=== PATIENT | male | born 1945 | race Caucasian/White ===

== ENCOUNTER 2017-05-05 03:09 | Inpatient (IN) | payer MEDICARE, OTHER ==
[2017-05-05] MEDS ORDERED: MORPHINE SULFATE 4 MG INJ IV ONE ×2 (03:23→09:21)
[2017-05-05] MEDS ORDERED: TYLENOL 325 MG PO ONE (03:23)
[2017-05-05] MEDS ORDERED: Sodium Chloride 0.9% 1000 ML 1,000 ML IV STA ×2 (03:23→05:03)
[2017-05-05] MEDS ORDERED: Zofran 4 MG/2 ML VIAL IV ONE (03:23)
[2017-05-05] MEDS ORDERED: TYLENOL 325 MG ONE (03:30)
[2017-05-05] MEDS ORDERED: Sodium Chloride 0.9% 1000 ML 1,000 ML ONE ×2 (03:30→05:08)
[2017-05-05] MEDS ORDERED: MORPHINE SULFATE 4 MG INJ ONE (03:30)
[2017-05-05] MEDS ORDERED: Zofran 4 MG/2 ML VIAL ONE (03:30)
--- NOTE | 2017-05-05 03:30 | ERPHSYRPT ---
- History of Present Illness Time Seen by Provider: 05/05/17 03:20 Source: patient Exam Limitations: no limitations Physician History: 71 y/o male with history of pancreatic s/p Whipple in January currently on gemcitabine and another IV chemotherapy weekly brought in by ambulance for fever and abdominal pain that started this morning. Pt states that he had severe diffuse abdominal pain that woke him up and had his temperature checked which was 100.9. In the ER, patient has a fever of 103. Pt states that the pain was sharp, constant, 10/10, with radiation across the abdomen and to the back. Pt currently has mild pain. Pt also admits to nausea, but no vomiting, diarrhea , urinary symptoms, cough, congestion, shortness of breath or chest pain. Timing/Duration: today Fever Severity: severe Fever Therapy CASE MANAGEMENT SPECIALIST: none Associated Symptoms: abdominal pain Allergies/Adverse Reactions: No Known Drug Allergies Allergy (Unverified 05/05/17 03:24) Home Medications: Capecitabine 500 mg PO BID 05/05/17 [History] Clonazepam 0.5 mg [Klonopin 0.5 MG] 0.5 mg PO BIDPRN PRN 05/05/17 [History ] Dexamethasone Sodium Phosp/Pf [Dexamethasone 10 mg/ml Vial] 12 mg IV DAILY PRN PRN 05/05/17 [History] Docusate Sodium 100 mg PO DAILY PRN PRN 05/05/17 [History] Gemcitabine HCl 1,800 mg IV Q12H PRN PRN 05/05/17 [History] Lansoprazole 30 mg PO DAILY 05/05/17 [History] Loperamide HCl 2 mg [Imodium 2 mg] 2 mg PO Q12H PRN PRN 05/05/17 [History] Ondansetron [Zofran Odt] 4 mg PO Q6HPRN PRN 05/05/17 [History] Oxycodone HCl [Oxycodone HCl ER] 10 mg PO Q4HPRN PRN 05/05/17 [History] Oxycodone HCl [Oxycodone HCl ER] 20 mg PO Q4HPRN PRN 05/05/17 [History] Prochlorperazine Maleate 10 mg PO Q6HPRN PRN 05/05/17 [History] - Review of Systems Constitutional: Fever, Chills, Weakness Eyes: No Symptoms Ears, Nose, & Throat: No Symptoms Respiratory: No Cough, No Dyspnea, No Dyspnea on Exertion (MARINO), No Wheezing Cardiac: No Chest Pain, No Edema, No Palpitations, No Syncope Abdominal/Gastrointestinal: Abdominal Pain, Nausea, Constipation, No Vomiting, No Diarrhea Genitourinary Symptoms: No Dysuria Musculoskeletal: No Back Pain, No Neck Pain Skin: No Rash Neurological: No Dizziness, No Focal Weakness, No Sensory Changes Psychological: No Symptoms Endocrine: No Symptoms Hematologic/Lymphatic: Easy Bruising All Other Systems: Reviewed and Negative - Nursing Vital Signs Nursing Vital Signs: Initial Vital Signs Temperature 103.1 F 05/05/17 03:27 Pulse Rate 138 H 05/05/17 03:27 Respiratory Rate 24 05/05/17 03:27 Blood Pressure 147/66 05/05/17 03:27 O2 Sat by Pulse Oximetry 97 05/05/17 03:27 Pain Scale Pain Intensity 4 - Physical Exam General Appearance: moderate distress, alert Eye Exam: PERRL/EOMI ENT Exam: normal ENT inspection, No pharyngeal erythema, No tonsillar exudate Neck Exam: normal inspection, non-tender, supple, full range of motion, No meningismus Respiratory Exam: normal breath sounds, chest non-tender, lungs clear, no respiratory distress Cardiovascular/Chest Exam: normal heart sounds, regular rate/rhythm, No murmur, No edema Gastrointestinal/Abdominal Exam: soft, no distention, normal bowel sounds, tenderness, No distended Extremity Exam: non-tender, normal range of motion, normal inspection, normal capillary refill Neurologic Exam: alert, oriented x 3, cooperative, wildlife control agent II-XII nml as tested, normal mood/affect, sensation nml, No motor deficits Skin Exam: normal color, warm, dry, No rash - Course Nursing assessment & vital signs reviewed: Yes EKG Interpreted by Me: RATE (HR 143), Sinus Tach Ordered Tests: Active Orders 24 hr Category Date Time Status EKG-ER Only STAT Care 05/05/17 03:23 Active IV Insertion STAT Care 05/05/17 03:23 Active NPO (ED) STAT Care 05/05/17 03:23 Active ABDOMEN AND PELVIS W CONTRAST [CT] Stat Exams 05/05/17 03:23 Taken CHEST WITH CONTRAST [CT] Stat Exams 05/05/17 03:30 Taken AMYLASE Stat Lab 03/01/18 03:59 Completed BLOOD CULTURE Stat Lab 05/05/17 03:59 Received CBC W DIFF Stat Lab 05/05/17 03:59 Completed CMP Stat Lab 05/05/17 03:59 Completed LIPASE Stat Lab 05/05/17 03:59 Completed Lactic Acid Stat Lab 05/05/17 04:30 Completed Lactic Acid Stat Lab 05/05/17 06:47 Ordered Manual Differential NC Stat Lab 05/05/17 03:59 Completed PROTIME WITH INR Stat Lab 05/05/17 03:59 Completed PTT Stat Lab 05/05/17 04:00 Received TROPONIN Q3H Lab 05/05/17 03:59 Completed TROPONIN Q3H Lab 05/05/17 06:38 Received TROPONIN Q3H Lab 05/05/17 09:30 Ordered TROPONIN Q3H Lab 05/05/17 12:30 Ordered TROPONIN Q3H Lab 05/05/17 15:30 Ordered UA W/ MICROSCOPIC Stat Lab 05/05/17 04:27 Completed Medication Summary Generic Name Dose Route Start Last Admin Trade Name Freq PRN Reason Stop Dose Admin Piperacillin Sod/Tazobactam Sod 3.375 gm in 100 mls @ 200 mls/hr 05/05/17 06: 40 05/05/17 06:46 Zosyn 3.375gm/100 Ml D5w IV 05/05/17 07:09 200 mls/hr STAT STA Administration Discontinued Medications Generic Name Dose Route Start Last Admin Trade Name Freq PRN Reason Stop Dose Admin Acetaminophen 975 mg 05/05/17 03:23 05/05/17 03:32 Tylenol 325 Mg PO 05/05/17 03:24 975 mg STAT ONE Administration Acetaminophen Confirm 05/05/17 03:30 Tylenol 325 Mg Administered 05/05/17 03:31 Dose 975 mg .ROUTE .STK-MED ONE Sodium Chloride 1,000 mls @ 999 mls/hr 05/05/17 03:23 05/05/17 03:38 Sodium Chloride 0.9% 1000 Ml IV 05/05/17 04:23 999 mls/hr .Q1H1M STA Administration Sodium Chloride Confirm 05/05/17 03:30 Sodium Chloride 0.9% 1000 Ml Administered 05/05/17 03:31 Dose 1,000 mls @ ud .ROUTE .STK-MED ONE Sodium Chloride 1,000 mls @ 999 mls/hr 05/05/17 05:03 05/05/17 05:08 Sodium Chloride 0.9% 1000 Ml IV 05/05/17 06:03 999 mls/hr .Q1H1M STA Administration Sodium Chloride Confirm 05/05/17 05:08 Sodium Chloride 0.9% 1000 Ml Administered 05/05/17 05:09 Dose 1,000 mls @ ud .ROUTE .STK-MED ONE Piperacillin Sod/Tazobactam Sod Confirm 05/05/17 06:45 Zosyn 3.375gm/100 Ml D5w Administered 05/05/17 06:46 Dose 3.375 gm in 100 mls @ ud IV .STK-MED ONE Morphine Sulfate 4 mg 05/05/17 03:23 05/05/17 03:34 Morphine Sulfate 4 Mg Inj IV 05/05/17 03:24 4 mg STAT ONE Administration Morphine Sulfate Confirm 05/05/17 03:30 Morphine Sulfate 4 Mg Inj Administered 05/05/17 03:31 Dose 4 mg .ROUTE .STK-MED ONE Ondansetron HCl 4 mg 05/05/17 03:23 05/05/17 03:38 Zofran 4 Mg/2 Ml Vial IV 05/05/17 03:24 4 mg STAT ONE Administration Ondansetron HCl Confirm 05/05/17 03:30 Zofran 4 Mg/2 Ml Vial Administered 05/05/17 03:31 Dose 4 mg .ROUTE .STK-MED ONE Lab/Rad Data: Laboratory Result Diagrams 05/05/17 03:59 05/05/17 03:59 Laboratory Results 05/05/17 05/05/17 05/05/17 Range/Units 04:30 04:27 03:59 WBC (4.0-10.5) K/mm3 RBC (4.1-5.6) M/mm3 Hgb (12.5-18.0) gm/dl Hct (42-50) % MCV (78-100) fl MCH (26-32) pg MCHC (32-36) g/dl RDW (11.5-14.0) % Plt Count (150-450) K/mm3 MPV (6-9.5) fl Segmented Neutrophils (36.-66.) % Band Neutrophils (0.0-2.0) % Lymphocytes (Manual) (24-44) % Nucleated RBCs % Differential Comment Platelet Estimate (NORMAL) INR (0.8-3.0) Sodium (136-145) mEq/L Potassium (3.5-5.1) mEq/L Chloride (98-107) mEq/L Carbon Dioxide (21-32) mEq/L Anion Gap (5-15) MEQ/L BUN (9-20) mg/dL Creatinine (0.55-1.30) mg/dl Estimated GFR ML/MIN Glucose (70-110) MG/DL Lactic Acid 4.0 H (0.4-2.0) Calcium (8.5-10.1) mg/dL Total Bilirubin (0.2-1.0) mg/dL AST (15-37) U/L ALT (12-78) U/L Alkaline Phosphatase (46-116) U/L Troponin I (0.000-0.056) ng/ml Serum Total Protein (6.4-8.2) gm/dL Albumin (3.4-5.0) g/dL Amylase (25-115) U/L Lipase (73-393) U/L Ur Collection Type VOID Urine Color YELLOW (YELLOW) Urine Appearance CLEAR (CLEAR) Urine pH 7.0 (5-6) Ur Specific [place] 1.010 (1.005-1.025) Urine Protein NEGATIVE (Negative) Urine Ketones NEGATIVE (NEGATIVE) Urine Blood TRACE NON-HEM (0-5) Errol/ul Urine Nitrite NEGATIVE (NEGATIVE) Urine Bilirubin NEGATIVE (NEGATIVE) Urine Urobilinogen NORMAL (0-1) mg/dL Ur Leukocyte Esterase NEGATIVE (NEGATIVE) Urine Microscopic RBC 2-5 (0-2) /HPF Urine Microscopic WBC 2-5 (0-5) /HPF Ur Epithelial Cells FEW (FEW) /HPF Urine Bacteria FEW (NEGATIVE) /HPF Urine Culture Reflexed NO (NO) Urine Glucose NEGATIVE (NEGATIVE) mg/dL Influenza Type A Ag NEGATIVE (NEGATIVE) Influenza Type B Ag NEGATIVE (NEGATIVE) RSV (PCR) NEGATIVE (Negative) Specimen Received 05/05/17 0400 05/05/17 05/05/17 05/05/17 Range/Units 03:59 03:59 03:59 WBC (4.0-10.5) K/mm3 RBC (4.1-5.6) M/mm3 Hgb (12.5-18.0) gm/dl Hct (42-50) % MCV (78-100) fl MCH (26-32) pg MCHC (32-36) g/dl RDW (11.5-14.0) % Plt Count (150-450) K/mm3 MPV (6-9.5) fl Segmented Neutrophils (36.-66.) % Band Neutrophils (0.0-2.0) % Lymphocytes (Manual) (24-44) % Nucleated RBCs % Differential Comment Platelet Estimate (NORMAL) INR 1.11 (0.8-3.0) Sodium 139 (136-145) mEq/L Potassium 3.7 (3.5-5.1) mEq/L Chloride 100 (98-107) mEq/L Carbon Dioxide 24.3 (21-32) mEq/L Anion Gap 18.2 H (5-15) MEQ/L BUN 16 (9-20) mg/dL Creatinine 1.23 (0.55-1.30) mg/dl Estimated GFR > 60 ML/MIN Glucose 176 H (70-110) MG/DL Lactic Acid (0.4-2.0) Calcium 8.5 (8.5-10.1) mg/dL Total Bilirubin 1.10 H (0.2-1.0) mg/dL AST 436 H (15-37) U/L ALT 248 H (12-78) U/L Alkaline Phosphatase 276 H (46-116) U/L Troponin I < 0.017 (0.000-0.056) ng/ml Serum Total Protein 6.6 (6.4-8.2) gm/dL Albumin 3.1 L (3.4-5.0) g/dL Amylase 47 (25-115) U/L Lipase 78 (73-393) U/L Ur Collection Type Urine Color (YELLOW) Urine Appearance (CLEAR) Urine pH (5-6) Ur Specific [place] (1.005-1.025) Urine Protein (Negative) Urine Ketones (NEGATIVE) Urine Blood (0-5) Errol/ul Urine Nitrite (NEGATIVE) Urine Bilirubin (NEGATIVE) Urine Urobilinogen (0-1) mg/dL Ur Leukocyte Esterase (NEGATIVE) Urine Microscopic RBC (0-2) /HPF Urine Microscopic WBC (0-5) /HPF Ur Epithelial Cells (FEW) /HPF Urine Bacteria (NEGATIVE) /HPF Urine Culture Reflexed (NO) Urine Glucose (NEGATIVE) mg/dL Influenza Type A Ag (NEGATIVE) Influenza Type B Ag (NEGATIVE) RSV (PCR) (Negative) Specimen Received 05/05/17 Range/Units 03:59 WBC 3.3 L (4.0-10.5) K/mm3 RBC 4.04 L (4.1-5.6) M/mm3 Hgb 11.1 L (12.5-18.0) gm/dl Hct 34.8 L (42-50) % MCV 86.1 (78-100) fl MCH 27.4 (26-32) pg MCHC 31.9 L (32-36) g/dl RDW 15.4 H (11.5-14.0) % Plt Count 112 L (150-450) K/mm3 MPV 8.7 (6-9.5) fl Segmented Neutrophils 79 H (36.-66.) % Band Neutrophils 11 H (0.0-2.0) % Lymphocytes (Manual) 10 L (24-44) % Nucleated RBCs 1 % Differential Comment NORMAL Platelet Estimate NORMAL (NORMAL) INR (0.8-3.0) Sodium (136-145) mEq/L Potassium (3.5-5.1) mEq/L Chloride (98-107) mEq/L Carbon Dioxide (21-32) mEq/L Anion Gap (5-15) MEQ/L BUN (9-20) mg/dL Creatinine (0.55-1.30) mg/dl Estimated GFR ML/MIN Glucose (70-110) MG/DL Lactic Acid (0.4-2.0) Calcium (8.5-10.1) mg/dL Total Bilirubin (0.2-1.0) mg/dL AST (15-37) U/L ALT (12-78) U/L Alkaline Phosphatase (46-116) U/L Troponin I (0.000-0.056) ng/ml Serum Total Protein (6.4-8.2) gm/dL Albumin (3.4-5.0) g/dL Amylase (25-115) U/L Lipase (73-393) U/L Ur Collection Type Urine Color (YELLOW) Urine Appearance (CLEAR) Urine pH (5-6) Ur Specific [place] (1.005-1.025) Urine Protein (Negative) Urine Ketones (NEGATIVE) Urine Blood (0-5) Errol/ul Urine Nitrite (NEGATIVE) Urine Bilirubin (NEGATIVE) Urine Urobilinogen (0-1) mg/dL Ur Leukocyte Esterase (NEGATIVE) Urine Microscopic RBC (0-2) /HPF Urine Microscopic WBC (0-5) /HPF Ur Epithelial Cells (FEW) /HPF Urine Bacteria (NEGATIVE) /HPF Urine Culture Reflexed (NO) Urine Glucose (NEGATIVE) mg/dL Influenza Type A Ag (NEGATIVE) Influenza Type B Ag (NEGATIVE) RSV (PCR) (Negative) Specimen Received - Progress Progress: improved Progress Note: 05/05/17 06:[address] chest does not show a pulmonary embolus but the CT abd/pelvis shows a possible enteritis vs cholangitis. There is also pneumobilia with slight thickening of the central biliary ducts. Pt will be started on zosyn. The patient feels better after receiving morphine, zofran and NS fluids. Pt has a lactic acid of 4. Pt has elevated LFTs but no trend to compare since the [facility]. [facility] but [facility] not [facility] due to his HR being too high. Pt will require inpatient admission and once the patient is more stable, [facility] can be [facility]. Pt has been [facility] on the waitlist. I spoke to Dr Vizcaino who has accepted the patient but the patient will go under the service of Dr Maria. 05/05/17 06:53 - Departure Time of Disposition: 06:54 Departure Disposition: In-patient Admission Clinical Impression: Enteritis Fever Qualifiers: Fever type: unspecified Qualified Code(s): R50.9 - Fever, unspecified Condition: Fair Critical Care Time: Yes Critical Care Time(excluding separately billable procedures): 75-104 minutes Referrals: [facility] [Primary Care Provider] -
[2017-05-05 04:19] LABS: Hematocrit 34.8 % (42-50); Hemoglobin 11.1 gm/dl (12.5-18.0); INR 1.11 (0.8-3.0); Mean Cell Volume 86.1 fl (78-100); Mean Corpuscular Hgb Concent. 31.9 g/dl (32-36); Mean Platelet Volume 8.7 fl (6-9.5); Platelet Count 112 K/mm3 (150-450); Red Blood Count 4.04 M/mm3 (4.1-5.6); Red Cell Distribution Width 15.4 % (11.5-14.0); White Blood Count 3.3 K/mm3 (4.0-10.5)
[2017-05-05 04:24] LABS: Mean Corpuscular Hemoglobin 27.4 pg (26-32)
[2017-05-05 04:26] LABS: ALBUMIN 3.1 g/dL (3.4-5.0); ALKALINE PHOSPHATASE 276 U/L (46-116); AMYLASE 47 U/L (25-115); ANION GAP 18.2 MEQ/L (5-15); BLOOD UREA NITROGEN 16 mg/dL (9-20); CHLORIDE 100 mEq/L (98-107); Calcium 8.5 mg/dL (8.5-10.1); Carbon Dioxide 24.3 mEq/L (21-32); Creatinine 1 1.23 mg/dl (0.55-1.30); Glucose 176 MG/DL (70-110); LIPASE 78 U/L (73-393); Potassium 3.7 mEq/L (3.5-5.1); SGOT/AST 436 U/L (15-37); SGPT/ALT 248 U/L (12-78); SODIUM 139 mEq/L (136-145); Total Protein 6.6 gm/dL (6.4-8.2)
[2017-05-05 04:48] LABS: Appearance CLEAR (CLEAR); Bilirubin NEGATIVE (NEGATIVE); Blood TRACE NON-HEM Ery/ul (0-5); Glucose NEGATIVE (NEGATIVE); Ketones NEGATIVE (NEGATIVE); Leukocyte Esterase NEGATIVE (NEGATIVE); Nitrite NEGATIVE (NEGATIVE); Protein,Urine Dip NEGATIVE (Negative); Urobilinogen NORMAL mg/dL (0-1)
[2017-05-05 04:49] LABS: Bacteria FEW /HPF (NEGATIVE); Epithelial Cells FEW /HPF (FEW)
[2017-05-05 04:51] LABS: INFLUENZA A NEGATIVE (NEGATIVE); INFLUENZA B NEGATIVE (NEGATIVE); RESPIRATORY SYNCTIAL VIRUS NEGATIVE (Negative)
[2017-05-05 04:54] LABS: BAND 11 % (0.0-2.0); Lymphocytes 10 % (24-44); Neutrophils 79 % (36.-66.); Nucleated Red Blood Cell 1 %; Platelet Estimate NORMAL (NORMAL); Total Cells Counted 100
[2017-05-05] MEDS ORDERED: Zosyn 3.375GM/100 Ml D5W 3.375 GM/100 ML IVPB IV STA (06:40)
[2017-05-05] MEDS ORDERED: Zosyn 3.375GM/100 Ml D5W 3.375 GM/100 ML IVPB IV ONE (06:45)
[2017-05-05] MEDS ORDERED: TYLENOL 325 MG PO PRN (06:55)
[2017-05-05 07:26] LABS: Lactic Acid 2.9 (0.4-2.0)
[2017-05-05] MEDS: Sodium Chloride 0.9% 1000 ML 1,000 ML IV SCH ×3 (08:35→19:49)
[2017-05-05] MEDS: MORPHINE SULFATE 4 MG INJ IV PRN ×3 (08:43→21:28)
--- NOTE | 2017-05-05 09:18 | PCM.HP ---
History of Present Illness - Chief Complaint Chief Complaint: abd pain History of Present Illness: is a 71 year old male with no local physician, he normally receives care from the [facility] in [place]. He has a history of pancreatic cancer and a Whipple procedure, started on chemotherapy 3 weeks ago. He woke up last night in the middle of the night with sudden epigastric pain and fever. He denies nausea, vomiting or diarrhea. Has no cardiac history, states he has a murmur but has been determined to be benign. In the ER he was found to have an elevated lactic acid, CT concerning for cholangitis with elevated LFT's and was tachycardic. Apparently the [facility] refused to take him due to no beds available in spite of his receiving all of his care there and was due for a chemo infusion today in their facility. he did have some radiation of the epigastric pain in to his chest, currently has pain in the epigastrium only. - Review of Systems Constitutional: Fever, Chills Respiratory: No Cough, No Short Of Breath Cardiac: No Chest Pain, No Edema, No Syncope Abdominal/Gastrointestinal: Abdominal Pain, No Nausea, No Vomiting, No Diarrhea , No Constipation, No Hematochezia, No Melena Genitourinary Symptoms: No Dysuria Skin: No Rash All Other Systems: Reviewed and Negative Medications & Allergies Home Medications: Home Medication List Clonazepam 0.5 mg [Klonopin 0.5 MG] 0.5 mg PO BIDPRN PRN 05/05/17 [ History Confirmed 05/05/17] Docusate Sodium 100 mg PO BID 05/05/17 [History Confirmed 05/05/17] Lansoprazole 30 mg PO LUNCH 05/05/17 [History Confirmed 05/05/17] Loperamide HCl 2 mg [Imodium 2 mg] 2 mg PO Q12H PRN PRN 05/05/17 [History Confirmed 05/05/17] Ondansetron [Zofran Odt] 4 mg PO Q6HPRN PRN 05/05/17 [History Confirmed 05/05/17 ] Oxycodone HCl 10 mg PO Q4H PRN 05/05/17 [History Confirmed 05/05/17] Prochlorperazine Maleate 10 mg PO Q6HPRN PRN 05/05/17 [History Confirmed ] Allergies/Adverse Reactions: Allergies Allergy/AdvReac Type Severity Reaction Status Date / Time No Known Drug Allergies Allergy Unverified 05/05/17 03:24 - Past Medical History Past Medical History: No Neurological History: No Pertinent History ENT History: No Pertinent History Cardiac History: Other Respiratory History: Asthma Endocrine Medical History: No Pertinent History Musculoskelatal History: Other GI Medical History: Colorectal Cancer, Diverticulosis, Other History: No Pertinent History Pyscho-Social History: Other Male Reproductive Disorders: No Pertinent History Comment: neck pain, vertigo, pancreatic cencer, non hodgkin lymphoma, sleep disorder, lumbago - Past Surgical History Past Surgical History: Yes Neuro Surgical History: No Pertinent History Cardiac History: No Pertinent History Respiratory Surgery: No Pertinent History GI Surgical History: Other Other Surgical History: whipple, pancreatic cancer - Social History Smoking Status: Former smoker Alcohol: None Drug Use: none - Physical Exam Vital Signs: Vital Signs - 24 hr Temp Pulse Resp BP Pulse Ox 05/05/17 08:11 118 H 18 97/56 97 05/05/17 07:33 123 H 16 118/59 93 L 05/05/17 06:51 128 H 16 120/61 95 05/05/17 06:48 128 H 20 128/81 96 05/05/17 05:50 130 H 05/05/17 05:40 130 H 18 128/61 96 05/05/17 04:50 126 H 18 124/47 97 05/05/17 04:00 132 H 18 133/78 98 05/05/17 03:27 103.1 F 138 H 24 147/66 97 General Appearance: no apparent distress, thin Neurologic Exam: alert, oriented x 3, cooperative Respiratory Exam: normal breath sounds, lungs clear, No respiratory distress Cardiovascular Exam: regular rate/rhythm, normal heart sounds, normal peripheral pulses Gastrointestinal/Abdomen Exam: soft, normal bowel sounds, No tenderness, No distention, No mass, No guarding Extremity Exam: normal inspection, normal range of motion, pelvis stable Skin Exam: normal color, warm, dry, No rash Assessment/Plan (1) Acute cholangitis Current Visit: Yes Status: Acute Assessment & Plan: will keep NPO, treat with IV zosyn and fluids. awaiting transfer to [facility] Code(s): K83.0 - CHOLANGITIS (2) Elevated troponin Current Visit: Yes Status: Acute Assessment & Plan: will consult Dr Ugarte since [facility], likely demand related due to current illness but will appreciate cardiology input. Code(s): R74.8 - ABNORMAL LEVELS OF OTHER SERUM ENZYMES (3) Pancreatic cancer Current Visit: Yes Status: Acute
[2017-05-05 10:06] LABS: Lactic Acid 3.4 (0.4-2.0)
[2017-05-05] MEDS ORDERED: NON-FORMULARY ITEM (Oxycodone Hcl [Oxycodone Hcl] 10 MG) PO PRN (10:20)
[2017-05-05] MEDS ORDERED: Klonopin 0.5 MG PO PRN (10:20)
[2017-05-05] MEDS: Colace 100 MG PO SCH ×3 (10:47→21:27)
[2017-05-05] MEDS ORDERED: Sodium Chloride 0.9% 500 ML 500 ML IV ONE (11:10)
[2017-05-05] MEDS: Zosyn 3.375GM/100 Ml D5W 3.375 GM/100 ML IVPB IV SCH ×2 (11:35→17:05)
[2017-05-05] MEDS: Protonix 40MG Tablet PO SCH (11:35)
[2017-05-05 12:59] LABS: Lactic Acid 2.3 (0.4-2.0)
--- NOTE | 2017-05-05 13:42 | XRAY ---
Exam: CT of the chest with IV contrast from 05/05/2017. CTDI: 13.62 Comparison: None. 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 History of colon cancer in 2000 with partial colon resection. Also has history of Whipple procedure in January, for pancreatic cancer. Technique: Post-IV contrast axial images were obtained through the chest per PE protocol during automated injection of 80 cc of Isovue-370 contrast material. Reconstructed coronal and sagittal images were created and reviewed. Findings: The pulmonary arteries enhance well revealing no filling defects to suggest clot/emboli. The thoracic aorta reveals no evidence of aneurysm or aortic dissection. A few small granulomatous calcifications overlie the distal right paratracheal projection and the right hilum. No abnormal mediastinal or perihilar lymphadenopathy is seen. Mild chronic scarring/atelectasis is seen at the anterior margin of the left upper lung field with evidence of some bronchiectasis and mild left chest volume loss. A prominent calcified granuloma is seen within the right upper lung field. I also note a minimal posterior pleural effusion or possibly small empyema at the posterior left lung base with pleural thickening. No pneumothorax is seen. Some pneumobilia is seen within the visualized liver, perhaps to the patient's prior Whipple's procedure. Minimal fluid is seen within the gallbladder fossa and the adjacent small bowel loops within the medial aspect of the right upper quadrant. The reason for this is unknown. Numerous calcified granulomas are seen within a normal-sized spleen. There appears to be some thickening and enhancement of the wall of the gastric antrum. Consider gastritis or some other infiltrating process. The adrenal glands appear unremarkable. Partial proximal pancreatectomy is seen. Impression: 1. I see no findings of acute pulmonary embolism. Nor do I detect a thoracic aortic aneurysm or dissection. 2. There appears to be some mild focal chronic scarring/atelectasis within the anterior upper to mid left lung field with bronchiectasis and some volume loss. This appears old. 3. At the posterior left lung base there appears to be a minimal left pleural effusion with pleural thickening versus a small empyema. See axial image #1. 4. Pneumobilia, likely related to the patient's prior Whipple procedure. Partial proximal pancreatectomy is also seen. 5. A small amount of fluid is seen within the gallbladder fossa and adjacent to small bowel loops in this region. The reason for this is not clear. Consider enteritis. 6. There is some thickening and mucosal enhancement within the gastric antrum. Consider gastritis or some other infiltrating process.
--- NOTE | 2017-05-05 14:08 | XRAY ---
Exam: CT of the abdomen and pelvis with IV contrast from 05/05/2017. CTDI: 14.42 Comparison: None. Indication: Abdominal pain with high fever. Patient taking chemotherapy now for pancreatic cancer, history of Whipple procedure in January, with cholecystectomy, history of partial colon resection for colon cancer in 2000. Technique: Post-IV contrast axial images were obtained through the abdomen and pelvis during and following automated IV injection of 80 cc of Isovue-370 contrast material. Reconstructed coronal and sagittal images were created and reviewed. Findings: I again note pneumobilia within the liver, probably due to the patient's recent Whipple's procedure. A few scattered calcified granulomas are seen within the liver. I also note some periportal edema within the liver with slight thickening of the central intrahepatic biliary ducts (image 20 of series #5). I also see a small amount of fluid within the gallbladder fossa and the adjacent small bowel within the medial aspect of the right upper quadrant. Consider the possibility of enteritis or cholangitis. No definite stones are seen. The spleen is of normal size and reveals numerous calcified granulomas. I see changes consistent with patient's Whipple procedure involving the pancreas. No pancreatic duct distention is seen. The adrenal glands appear unremarkable. The kidneys are unremarkable size and reveal no mass, calculi, or hydronephrosis. The ureters reveal no ureterolith. Atherosclerotic vascular calcification is seen within the abdominal aorta. No abdominal aortic aneurysm or abnormal retroperitoneal lymphadenopathy is seen. No free intraperitoneal air is seen. I again note some thickening of the antrum of the stomach. This could be due to gastritis. An infiltrating submucosal process is considered less likely. Multiple bowel anastomoses are noted to the patient's Whipple procedure. I see no bowel obstruction. There is some subtle intraperitoneal stranding within the anterior left midabdomen, perhaps due to postsurgical changes. This is best seen on the axial and coronal images. Scattered stool is seen throughout the colon. The appendix appears unremarkable within the right lower quadrant. The urinary bladder is moderately distended but reveals no mass or calcifications. No bladder wall thickening is seen. No enlarged pelvic lymph nodes are seen. No free fluid is seen within the pelvis. The seminal vesicles and prostate gland appear grossly unremarkable. No abnormal inguinal lymphadenopathy is seen. The skeleton reveals no acute fracture or aggressive bone lesion. I note mild grade 1 anterolisthesis of L5 over S1 with bilateral L5 spondylolysis. There appears to be a small Schmorl's node within the central aspect of the superior vertebral endplate of T11. Impression: 1. Pneumobilia with slight thickening of the central intrahepatic bile ducts. Periportal edema and a small amount of fluid within the gallbladder fossa and adjacent small bowel are also seen. Consider the possibility of enteritis or cholangitis. 2. I also note evidence of prior Whipple procedure with postsurgical changes suspected within the anterior left hemiabdomen. 3. Thickening and mucosal enhancement enhancement of the gastric antral wall is seen. This is likely due to gastritis rather than infiltrating process.
[2017-05-06] MEDS: Zosyn 3.375GM/100 Ml D5W 3.375 GM/100 ML IVPB IV SCH ×4 (00:07→18:51)
[2017-05-06] MEDS: Sodium Chloride 0.9% 1000 ML 1,000 ML IV SCH ×3 (02:43→17:13)
[2017-05-06 06:18] LABS: Hematocrit 32.2 % (42-50); Mean Cell Volume 86.8 fl (78-100); Mean Corpuscular Hgb Concent. 31.1 g/dl (32-36); Platelet Count 98 K/mm3 (150-450); Red Blood Count 3.71 M/mm3 (4.1-5.6); White Blood Count 6.3 K/mm3 (4.0-10.5)
[2017-05-06 06:23] LABS: Mean Corpuscular Hemoglobin 26.9 pg (26-32)
[2017-05-06 06:33] LABS: ALBUMIN 2.2 g/dL (3.4-5.0); ALKALINE PHOSPHATASE 203 U/L (46-116); ANION GAP 13.4 MEQ/L (5-15); BLOOD UREA NITROGEN 9 mg/dL (9-20); CHLORIDE 106 mEq/L (98-107); Carbon Dioxide 23.4 mEq/L (21-32); Creatinine 1 0.83 mg/dl (0.55-1.30); Glucose 99 MG/DL (70-110); Potassium 3.9 mEq/L (3.5-5.1); SGOT/AST 203 U/L (15-37); SGPT/ALT 323 U/L (12-78); SODIUM 139 mEq/L (136-145); Total Protein 5.7 gm/dL (6.4-8.2)
[2017-05-06 07:14] LABS: BAND 18 % (0.0-2.0); Lymphocytes 9 % (24-44); Monocyte 7 % (0.0-12.0); Neutrophils 66 % (36.-66.); Total Cells Counted 100
[2017-05-06 07:15] LABS: ANISOCYTOSIS 2+; Macrocytosis 1+; Platelet Estimate DECREASED (NORMAL); Polychromasia 1+
--- NOTE | 2017-05-06 08:35 | PCM.NOTE ---
Date and Time: 05/06/17 08 Subjective Assessment: pain is well controlled, overall thinks he is feeling a little better. no new complaints. Objective Exam General Appearance: no apparent distress, alert, thin Respiratory Exam: normal breath sounds, lungs clear, No respiratory distress Cardiovascular Exam: regular rate/rhythm, normal heart sounds Gastrointestinal/Abdomen Exam: tenderness, No mass, No guarding, No rebound Extremity Exam: normal inspection, normal range of motion OBJECTIVE DATA Vital Signs: Vital Signs - 24 hr Temp Pulse Resp BP Pulse Ox 05/06/17 08:00 98.9 F 88 20 137/57 96 05/06/17 07:41 88 05/06/17 04:48 97.6 F 87 21 113/57 96 05/06/17 04:00 87 05/06/17 02:00 99.2 F 81 23 100/54 95 05/06/17 00:01 84 05/05/17 22:51 90 14 120/57 96 05/05/17 20:23 86 21 110/60 95 05/05/17 19:29 99.3 F 87 21 96/53 97 05/05/17 16:00 99 F 97 H 19 110/58 96 05/05/17 11:42 99 F 104 H 17 106/61 96 05/05/17 10:07 99.5 F 108 H 18 107/59 Pain Assessment - Last Documented Pain Intensity 5 Pain Scale Used 0-10 Pain Scale Intake and Output: Intake & Output 05/03/17 05/04/17 05/05/17 05/06/17 11:59 11:59 11:59 11:59 Intake Total 3361 Output Total 200 2435 Balance -200 926 Weight 64.1 kg 64.1 kg Lab Results: Lab Results-Last 24 Hours 05/05/17 05/05/17 05/05/17 Range/Units 09:26 09:48 12:43 WBC (4.0-10.5) K/mm3 RBC (4.1-5.6) M/mm3 Hgb (12.5-18.0) gm/dl Hct (42-50) % MCV (78-100) fl MCH (26-32) pg MCHC (32-36) g/dl RDW (11.5-14.0) % Plt Count (150-450) K/mm3 MPV (6-9.5) fl Segmented Neutrophils (36.-66.) % Band Neutrophils (0.0-2.0) % Lymphocytes (Manual) (24-44) % Monocytes (Manual) (0.0-12.0) % Differential Comment Platelet Estimate (NORMAL) Polychromasia Anisocytosis Macrocytosis Sodium (136-145) mEq/L Potassium (3.5-5.1) mEq/L Chloride (98-107) mEq/L Carbon Dioxide (21-32) mEq/L Anion Gap (5-15) MEQ/L BUN (9-20) mg/dL Creatinine (0.55-1.30) mg/dl Estimated GFR ML/MIN Glucose (70-110) MG/DL Lactic Acid 3.4 H (0.4-2.0) Calcium (8.5-10.1) mg/dL Total Bilirubin (0.2-1.0) mg/dL AST (15-37) U/L ALT (12-78) U/L Alkaline Phosphatase (46-116) U/L Troponin I 0.069 H* 0.108 H* (0.000-0.056) ng/ml Serum Total Protein (6.4-8.2) gm/dL Albumin (3.4-5.0) g/dL 05/05/17 05/05/17 05/05/17 Range/Units 12:56 15:23 15:30 WBC (4.0-10.5) K/mm3 RBC (4.1-5.6) M/mm3 Hgb (12.5-18.0) gm/dl Hct (42-50) % MCV (78-100) fl MCH (26-32) pg MCHC (32-36) g/dl RDW (11.5-14.0) % Plt Count (150-450) K/mm3 MPV (6-9.5) fl Segmented Neutrophils (36.-66.) % Band Neutrophils (0.0-2.0) % Lymphocytes (Manual) (24-44) % Monocytes (Manual) (0.0-12.0) % Differential Comment Platelet Estimate (NORMAL) Polychromasia Anisocytosis Macrocytosis Sodium (136-145) mEq/L Potassium (3.5-5.1) mEq/L Chloride (98-107) mEq/L Carbon Dioxide (21-32) mEq/L Anion Gap (5-15) MEQ/L BUN (9-20) mg/dL Creatinine (0.55-1.30) mg/dl Estimated GFR ML/MIN Glucose (70-110) MG/DL Lactic Acid 2.3 H 1.7 (0.4-2.0) Calcium (8.5-10.1) mg/dL Total Bilirubin (0.2-1.0) mg/dL AST (15-37) U/L ALT (12-78) U/L Alkaline Phosphatase (46-116) U/L Troponin I 0.124 H* (0.000-0.056) ng/ml Serum Total Protein (6.4-8.2) gm/dL Albumin (3.4-5.0) g/dL 05/06/17 05/06/17 05/06/17 Range/Units 04:00 05:20 05:20 WBC 6.3 (4.0-10.5) K/mm3 RBC 3.71 L (4.1-5.6) M/mm3 Hgb 10.0 L (12.5-18.0) gm/dl Hct 32.2 L (42-50) % MCV 86.8 (78-100) fl MCH 26.9 (26-32) pg MCHC 31.1 L (32-36) g/dl RDW 16.0 H (11.5-14.0) % Plt Count 98 L (150-450) K/mm3 MPV 9.0 (6-9.5) fl Segmented Neutrophils 66 (36.-66.) % Band Neutrophils 18 H (0.0-2.0) % Lymphocytes (Manual) 9 L (24-44) % Monocytes (Manual) 7 (0.0-12.0) % Differential Comment ABNORMAL Platelet Estimate DECREASED (NORMAL) Polychromasia 1+ Anisocytosis 2+ Macrocytosis 1+ Sodium 139 (136-145) mEq/L Potassium 3.9 (3.5-5.1) mEq/L Chloride 106 (98-107) mEq/L Carbon Dioxide 23.4 (21-32) mEq/L Anion Gap 13.4 (5-15) MEQ/L BUN 9 (9-20) mg/dL Creatinine 0.83 (0.55-1.30) mg/dl Estimated GFR > 60 ML/MIN Glucose 99 (70-110) MG/DL Lactic Acid 1.0 (0.4-2.0) Calcium 8.0 L (8.5-10.1) mg/dL Total Bilirubin 2.70 H (0.2-1.0) mg/dL AST 203 H (15-37) U/L ALT 323 H (12-78) U/L Alkaline Phosphatase 203 H (46-116) U/L Troponin I (0.000-0.056) ng/ml Serum Total Protein 5.7 L (6.4-8.2) gm/dL Albumin 2.2 L (3.4-5.0) g/dL Radiology Exams: Radiology Procedures Category Date Time Status ECHO W/2D AND DOPPLER [US] Routine Exams 05/05/17 14:28 Taken Multi-Disciplinary Progress Notes: Multi-Disciplinary Progress Notes 05/05/17 14:42 Case Management Note by Nubia Martinez CALLED [phone], [facility], AND [facility]. AT THIS TIME THERE ARE NO BEDS, BUT THEY HAVE SEVERAL PATIENTS THAT ARE BEING DISCHARGED. SHE RECOMMENDS CALLING BACK BETWEEN [phone] TODAY AND TO CONTINUE CALLING THROUGHOUT THE EVENING IF NONE AVAILABLE WHEN WE CALL. SOMEONE IS ON THIS LINE 27/09. I DID ASK FOR A MEDSURG INPT BED. DR. NAQVI MAY RECOMMEND EITHER A MEDSURG OR PROGRESSIVE BED AVAILABLE. NOTIFIED GUNJAN Nova RN PRIMARY NURSE. Initialized on 05/05/17 14:42 - END OF NOTE 05/05/17 08:50 Case Management Note by Nubia Martinez CALL MADE TO [facility] AT [phone], TO VERIFY INFORMATION GIVEN TO E.R. PHYSICIAN REGARDING BED AT THE [facility]. JAIRON NAVARRO WITH BED CONTROL CALLED BACK, MR MEDRANO IS ON A WAITING LIST. THERE ARE 17 PEOPLE ON THE LIST AHEAD OF HIM. HER ADVICE IS TO TREAT HERE NEEDED FOR HIS ILLNESS, AND KEEP THEM INFORMED, SENDING COPIES OF PROGRESS NOTES OR ANY TRANSFERS TO A TERTIARY FACILITY. FAX # [phone]. CALL BACK THIS AFTERNOON TO CHECK ON BED AVAILABLITY. Initialized on 05/05/17 08:50 - END OF NOTE Assessment/Plan (1) Sepsis Current Visit: Yes Status: Acute Assessment & Plan: gram negative rods 2/2 on blood culture, lactate normalized (2) Acute cholangitis Current Visit: Yes Status: Acute Assessment & Plan: continue zosyn Code(s): K83.0 - CHOLANGITIS (3) Elevated troponin Current Visit: Yes Status: Acute Assessment & Plan: cardiology agrees that likely related to cholangitis, echo pending. Code(s): R74.8 - ABNORMAL LEVELS OF OTHER SERUM ENZYMES (4) Pancreatic cancer Current Visit: Yes Status: Acute Assessment & Plan: awaiting transfer to [facility]
[2017-05-06] MEDS: Colace 100 MG PO SCH ×2 (08:42→22:32)
[2017-05-06] MEDS: MORPHINE SULFATE 4 MG INJ IV PRN ×3 (08:42→19:05)
[2017-05-06] MEDS: Protonix 40MG Tablet PO SCH (12:37)
--- NOTE | 2017-05-06 15:23 | ECHO ---
Transthoracic echocardiographic examination and color Doppler was done on 05/05/2017. INDICATION: Elevated troponin I, history of Whipple procedure and also chest pain. IMPRESSION: 1) NO DEFINITE REGIONAL WALL MOTION ABNORMALITY. ESTIMATED GLOBAL LEFT VENTRICULAR EJECTION FRACTION 50 TO 60%. 2) MILD MITRAL REGURGITATION. 3) MILD TRICUSPID REGURGITATION. RIGHT VENTRICULAR SYSTOLIC PRESSURE OF 47 MM OF MERCURY. 4) MILD AORTIC REGURGITATION. 5) LEFT VENTRICULAR HYPERTROPHY. The left ventricle is visualized and demonstrated adequate motion of all the segments. Estimated global left ventricular ejection fraction around 50 to 60%. There is mild left ventricular hypertrophy. The mitral valve appears to be thickened with some calcification noted. There is mild mitral regurgitation. Left atrium is normal. The aortic valve opens adequately. There is mild aortic regurgitation. Right side chambers are normal. There is mild tricuspid regurgitation. The right ventricular systolic pressure of 47 mm of Mercury. The aortic valve appears to be mildly thickened.
[2017-05-07] MEDS: MORPHINE SULFATE 4 MG INJ IV PRN ×3 (00:29→22:10)
[2017-05-07] MEDS: Zosyn 3.375GM/100 Ml D5W 3.375 GM/100 ML IVPB IV SCH ×4 (00:35→17:56)
[2017-05-07] MEDS: Sodium Chloride 0.9% 1000 ML 1,000 ML IV SCH ×4 (01:15→22:49)
[2017-05-07] MEDS: Sodium Chloride 0.9% 10 ML FLUSH Syringe IV SCH ×4 (05:38→22:15)
[2017-05-07 06:56] LABS: ALKALINE PHOSPHATASE 184 U/L (46-116); ANION GAP 15.7 MEQ/L (5-15); BLOOD UREA NITROGEN 7 mg/dL (9-20); CHLORIDE 106 mEq/L (98-107); Calcium 8.1 mg/dL (8.5-10.1); Carbon Dioxide 19.6 mEq/L (21-32); Creatinine 1 0.78 mg/dl (0.55-1.30); Glucose 117 MG/DL (70-110); Potassium 4.1 mEq/L (3.5-5.1); SGOT/AST 82 U/L (15-37); SGPT/ALT 203 U/L (12-78); SODIUM 137 mEq/L (136-145); Total Protein 5.8 gm/dL (6.4-8.2)
--- NOTE | 2017-05-07 09:53 | PCM.NOTE ---
Date and Time: 05/07/1749 Subjective Assessment: Still having some abd pain, but has been up out of bed and walking. He thinks part of his pain is hunger; states keeping his stomach full has helped him feel better since he started tolerating po some weeks (over 6 wks) after the Whipple procedure. IV was lost last night; after 5 sticks he has an IV in his hand that he is afraid is leaking. - Review of Systems Constitutional: No Fever Abdominal/Gastrointestinal: Abdominal Pain, No Vomiting Objective Exam General Appearance: no apparent distress, alert Neurologic Exam: oriented x 3, cooperative Skin Exam: normal color, warm, dry, No rash Respiratory Exam: normal breath sounds, lungs clear, No crackles/rales, No rhonchi, No wheezing Cardiovascular Exam: regular rate/rhythm, normal heart sounds, No murmur Gastrointestinal/Abdomen Exam: soft, normal bowel sounds, tenderness ( generalized ttp, worse in epigastrum/RUQ), No distention, No mass, No guarding, No rebound Extremity Exam: No pedal edema, No swelling Back Exam: normal inspection, No rash OBJECTIVE DATA Vital Signs: Vital Signs - 24 hr Temp Pulse Resp BP Pulse Ox 05/07/17 08:00 97.9 F 83 19 141/66 96 05/07/17 04:00 98.2 F 74 16 137/68 96 05/07/17 00:01 81 05/07/17 00:00 98.6 F 86 15 147/63 97 05/06/17 20:00 98.4 F 86 14 128/93 99 05/06/17 16:00 98.5 F 82 19 158/74 98 05/06/17 12:00 98.6 F 90 20 144/68 98 Pain Assessment - Last Documented Pain Intensity 5 Pain Scale Used 0-10 Pain Scale Intake and Output: Intake & Output 05/04/17 05/05/17 05/06/17 05/07/17 11:59 11:59 11:59 11:59 Intake Total 3361 1799 Output Total 200 2610 2975 Balance -200 771 -1176 Weight 64.1 kg 64.1 kg 63.2 kg Lab Results: Lab Results-Last 24 Hours 05/07/17 Range/Units 05:20 Sodium 137 (136-145) mEq/L Potassium 4.1 (3.5-5.1) mEq/L Chloride 106 (98-107) mEq/L Carbon Dioxide 19.6 L (21-32) mEq/L Anion Gap 15.7 H (5-15) MEQ/L BUN 7 L (9-20) mg/dL Creatinine 0.78 (0.55-1.30) mg/dl Estimated GFR > 60 ML/MIN Glucose 117 H (70-110) MG/DL Calcium 8.1 L (8.5-10.1) mg/dL Total Bilirubin 1.00 (0.2-1.0) mg/dL AST 82 H (15-37) U/L ALT 203 H (12-78) U/L Alkaline Phosphatase 184 H (46-116) U/L Troponin I 0.050 (0.000-0.056) ng/ml Serum Total Protein 5.8 L (6.4-8.2) gm/dL Albumin 2.0 L (3.4-5.0) g/dL Radiology Exams: Radiology Procedures Category Date Time Status ECHO W/2D AND DOPPLER [US] Routine Exams 05/05/17 14:28 Draft Multi-Disciplinary Progress Notes: Multi-Disciplinary Progress Notes 05/06/17 11:00 Case Management Note by Nubia Martinez CALLED [facility] AT [phone] AND [facility], SHE STATES AT THIS TIME THERE ARE NO BEDS AVAILABLE. THERE ARE NOW 14 AHEAD OF HIM. SHE ADVISED TO CALL BACK THIS AFTERNOON. Initialized on 05/06/17 11:00 - END OF NOTE Assessment/Plan (1) Sepsis Current Visit: Yes Status: Acute Qualifiers: Sepsis type: sepsis due to unspecified organism Qualified Code(s): A41.9 - Sepsis, unspecified organism Assessment & Plan: will remain on IV zosyn. Vitals are good, afebrile. (2) Acute cholangitis Current Visit: Yes Status: Acute Assessment & Plan: His numbers are improving this morning, actually. AST down to 82; ALT to 203 and alk phos to 184. Will start with CLD and advance slowly as tolerated; pt anxious for solid food. Code(s): K83.0 - CHOLANGITIS (3) Abdominal pain Current Visit: Yes Status: Acute Qualifiers: Abdominal location: epigastric Qualified Code(s): R10.13 - Epigastric pain Code(s): R10.9 - UNSPECIFIED ABDOMINAL PAIN (4) Elevated troponin Current Visit: Yes Status: Resolved Assessment & Plan: returned to normal; likely due to acute illness. Code(s): R74.8 - ABNORMAL LEVELS OF OTHER SERUM ENZYMES (5) Pancreatic cancer Current Visit: Yes Status: Acute Qualifiers: Pancreatic malignancy location: unspecified Qualified Code(s): C25.9 - Malignant neoplasm of pancreas, unspecified Assessment & Plan: post Whipple procedure. Pt is waiting for a bed at the [facility].
[2017-05-07] MEDS: Colace 100 MG PO SCH ×2 (10:22→21:29)
[2017-05-07] MEDS: Protonix 40MG Tablet PO SCH (12:10)
[2017-05-07] MEDS: Oxy-IR 5 MG PO PRN (12:21)
[2017-05-07] MEDS: Zofran 4 MG/2 ML VIAL IV PRN ×2 (12:21→17:57)
[2017-05-08] MEDS: Zosyn 3.375GM/100 Ml D5W 3.375 GM/100 ML IVPB IV SCH ×4 (00:44→17:00)
[2017-05-08] MEDS: Oxy-IR 5 MG PO PRN ×4 (02:39→22:24)
[2017-05-08] MEDS: Sodium Chloride 0.9% 10 ML FLUSH Syringe IV SCH ×2 (05:38→14:48)
[2017-05-08] MEDS: Zofran 4 MG/2 ML VIAL IV PRN ×3 (05:45→18:45)
[2017-05-08] MEDS: Sodium Chloride 0.9% 1000 ML 1,000 ML IV SCH ×2 (07:03→19:36)
[2017-05-08] MEDS: Colace 100 MG PO SCH (09:32)
[2017-05-08 10:33] LABS: Hematocrit 30.3 % (42-50); Hemoglobin 9.6 gm/dl (12.5-18.0); Mean Cell Volume 85.8 fl (78-100); Mean Corpuscular Hgb Concent. 31.7 g/dl (32-36); Mean Platelet Volume 8.8 fl (6-9.5); Platelet Count 190 K/mm3 (150-450); Red Blood Count 3.53 M/mm3 (4.1-5.6); Red Cell Distribution Width 16.6 % (11.5-14.0); White Blood Count 4.1 K/mm3 (4.0-10.5)
[2017-05-08 10:37] LABS: Mean Corpuscular Hemoglobin 27.1 pg (26-32)
[2017-05-08 11:04] LABS: ALBUMIN 2.1 g/dL (3.4-5.0); ALKALINE PHOSPHATASE 153 U/L (46-116); ANION GAP 12.8 MEQ/L (5-15); BLOOD UREA NITROGEN 3 mg/dL (9-20); CHLORIDE 108 mEq/L (98-107); Calcium 7.7 mg/dL (8.5-10.1); Carbon Dioxide 24.8 mEq/L (21-32); Creatinine 1 1.01 mg/dl (0.55-1.30); Glucose 178 MG/DL (70-110); Potassium 3.2 mEq/L (3.5-5.1); SGOT/AST 29 U/L (15-37); SGPT/ALT 131 U/L (12-78); SODIUM 142 mEq/L (136-145); Total Protein 5.9 gm/dL (6.4-8.2)
[2017-05-08] MEDS: Protonix 40MG Tablet PO SCH (11:24)
--- NOTE | 2017-05-08 14:16 | PCM.NOTE ---
Date and Time: 05/08/17 1413 Subjective Assessment: Pt tolerated po yesterday so this morning he ate pancakes and monson; did have a little nausea after that but it resolved with zofran. Up in chair today. Some abd pain, has been 5/10 and "tolerable." Started having diarrhea; one episode large amount soft stool yesterday, then two liquid stools today so far. - Review of Systems Constitutional: No Fever Abdominal/Gastrointestinal: Abdominal Pain, Nausea, Diarrhea, No Vomiting Objective Exam General Appearance: no apparent distress, alert Neurologic Exam: oriented x 3, cooperative Skin Exam: normal color, warm, dry, No rash Respiratory Exam: normal breath sounds, lungs clear, No crackles/rales, No rhonchi, No wheezing Cardiovascular Exam: regular rate/rhythm, normal heart sounds, No murmur Gastrointestinal/Abdomen Exam: soft, tenderness (generalized), No distention, No mass, No guarding, No rebound Back Exam: normal inspection, No rash OBJECTIVE DATA Vital Signs: Vital Signs - 24 hr Temp Pulse Resp BP Pulse Ox 05/08/17 11:31 84 05/08/17 11:30 98.4 F 84 20 148/83 99 05/08/17 08:00 98.4 F 89 18 155/74 98 05/08/17 04:00 98.7 F 83 24 128/81 98 05/08/17 00:01 80 05/08/17 00:00 98.4 F 80 21 152/76 98 05/07/17 20:00 98.6 F 80 18 137/72 98 05/07/17 15:41 72 05/07/17 15:39 98.3 F 72 22 143/68 99 Pain Assessment - Last Documented Pain Intensity 4 Pain Scale Used 0-10 Pain Scale Intake and Output: Intake & Output 05/06/17 05/07/17 05/08/17 05/09/17 11:59 11:59 11:59 11:59 Intake Total 3361 1799 4394 Output Total 2614 3715 1650 Balance 751 -1176 5744 Weight 64.1 kg 63.2 kg Lab Results: Lab Results-Last 24 Hours 05/08/17 05/08/17 Range/Units 10:22 10:22 WBC 4.1 (4.0-10.5) K/mm3 RBC 3.53 L (4.1-5.6) M/mm3 Hgb 9.6 L (12.5-18.0) gm/dl Hct 30.3 L (42-50) % MCV 85.8 (78-100) fl MCH 27.1 (26-32) pg MCHC 31.7 L (32-36) g/dl RDW 16.6 H (11.5-14.0) % Plt Count 190 (150-450) K/mm3 MPV 8.8 (6-9.5) fl Sodium 142 (136-145) mEq/L Potassium 3.2 L (3.5-5.1) mEq/L Chloride 108 H (98-107) mEq/L Carbon Dioxide 24.8 (21-32) mEq/L Anion Gap 12.8 (5-15) MEQ/L BUN 3 L (9-20) mg/dL Creatinine 1.01 (0.55-1.30) mg/dl Estimated GFR > 60 ML/MIN Glucose 178 H (70-110) MG/DL Calcium 7.7 L (8.5-10.1) mg/dL Total Bilirubin 0.40 (0.2-1.0) mg/dL AST 29 (15-37) U/L ALT 131 H (12-78) U/L Alkaline Phosphatase 153 H (46-116) U/L Serum Total Protein 5.9 L (6.4-8.2) gm/dL Albumin 2.1 L (3.4-5.0) g/dL Assessment/Plan (1) Sepsis Current Visit: Yes Status: Resolved Qualifiers: Sepsis type: sepsis due to unspecified organism Qualified Code(s): A41.9 - Sepsis, unspecified organism Assessment & Plan: On IV zosyn; will leave on zosyn for now. (2) Acute cholangitis Current Visit: Yes Status: Acute Assessment & Plan: Numbers continue to improve, wiht AST in the normal range this morning. ALT 131 and alk phos 153. He will discuss with Dr. Vizcaino in the morning whether he still needs transfer to the [place] vs outpatient follow up. Code(s): K83.0 - CHOLANGITIS (3) Abdominal pain Current Visit: Yes Status: Acute Qualifiers: Abdominal location: epigastric Qualified Code(s): R10.13 - Epigastric pain Assessment & Plan: improved. Code(s): R10.9 - UNSPECIFIED ABDOMINAL PAIN (4) Elevated troponin Current Visit: Yes Status: Resolved Code(s): R74.8 - ABNORMAL LEVELS OF OTHER SERUM ENZYMES (5) Pancreatic cancer Current Visit: Yes Status: Acute Qualifiers: Pancreatic malignancy location: unspecified Qualified Code(s): C25.9 - Malignant neoplasm of pancreas, unspecified
[2017-05-08] MEDS: Sodium Chloride 0.9% W/ 20 mEq KCl/LITER 1,000 ML IV SCH (14:44)
[2017-05-09] MEDS: Zosyn 3.375GM/100 Ml D5W 3.375 GM/100 ML IVPB IV SCH ×5 (00:01→23:41)
[2017-05-09] MEDS: Sodium Chloride 0.9% W/ 20 mEq KCl/LITER 1,000 ML IV SCH ×3 (00:10→23:41)
[2017-05-09] MEDS: Oxy-IR 5 MG PO PRN ×3 (02:22→22:04)
[2017-05-09] MEDS: Zofran 4 MG/2 ML VIAL IV PRN ×3 (06:24→19:51)
[2017-05-09 06:37] LABS: Hematocrit 28.8 % (42-50); Hemoglobin 9.2 gm/dl (12.5-18.0); Mean Cell Volume 86.5 fl (78-100); Mean Corpuscular Hemoglobin 27.6 pg (26-32); Mean Corpuscular Hgb Concent. 31.9 g/dl (32-36); Mean Platelet Volume 9.1 fl (6-9.5); Platelet Count 224 K/mm3 (150-450); Red Blood Count 3.33 M/mm3 (4.1-5.6); Red Cell Distribution Width 17.1 % (11.5-14.0); White Blood Count 4.9 K/mm3 (4.0-10.5)
[2017-05-09 07:03] LABS: ALKALINE PHOSPHATASE 129 U/L (46-116); ANION GAP 11.6 MEQ/L (5-15); BLOOD UREA NITROGEN 2 mg/dL (9-20); CHLORIDE 110 mEq/L (98-107); Calcium 7.9 mg/dL (8.5-10.1); Carbon Dioxide 25.4 mEq/L (21-32); Creatinine 1 0.77 mg/dl (0.55-1.30); Glucose 112 MG/DL (70-110); Potassium 3.1 mEq/L (3.5-5.1); SGOT/AST 21 U/L (15-37); SGPT/ALT 98 U/L (12-78); SODIUM 144 mEq/L (136-145); Total Protein 5.5 gm/dL (6.4-8.2)
--- NOTE | 2017-05-09 08:03 | PCM.NOTE ---
Date and Time: 05/09/17 0759 Subjective Assessment: feeling better, tolerating po. had some nausea yesterday but resolved. no diarrhea since yesterday. Objective Exam General Appearance: no apparent distress Respiratory Exam: normal breath sounds, lungs clear, No respiratory distress Cardiovascular Exam: regular rate/rhythm, normal heart sounds Gastrointestinal/Abdomen Exam: soft, No tenderness, No mass Extremity Exam: normal inspection, normal range of motion OBJECTIVE DATA Vital Signs: Vital Signs - 24 hr Temp Pulse Resp BP Pulse Ox 05/09/17 07:43 98 F 78 20 162/78 97 05/09/17 04:00 98.3 F 72 18 154/70 96 05/09/17 00:00 98.6 F 67 17 150/82 95 05/08/17 19:38 98.2 F 81 21 150/75 96 05/08/17 16:00 98.1 F 72 14 147/68 100 05/08/17 11:31 84 05/08/17 11:30 98.4 F 84 20 148/83 99 05/08/17 08:00 98.4 F 89 18 155/74 98 Pain Assessment - Last Documented Pain Intensity 7 Pain Scale Used [facility] Intake and Output: Intake & Output 05/06/17 05/07/17 05/08/17 05/09/17 11:59 11:59 11:59 11:59 Intake Total 3361 1799 4394 1967 Output Total 2610 2975 1650 300 Balance 751 -0458 3187 9717 Weight 64.1 kg 63.2 kg 63.8 kg Lab Results: Lab Results-Last 24 Hours 05/08/17 05/08/17 05/09/17 Range/Units 10:22 10:22 06:00 WBC 4.1 4.9 (4.0-10.5) K/mm3 RBC 3.53 L 3.33 L (4.1-5.6) M/mm3 Hgb 9.6 L 9.2 L (12.5-18.0) gm/dl Hct 30.3 L 28.8 L (42-50) % MCV 85.8 86.5 (78-100) fl MCH 27.1 27.6 (26-32) pg MCHC 31.7 L 31.9 L (32-36) g/dl RDW 16.6 H 17.1 H (11.5-14.0) % Plt Count 190 224 (150-450) K/mm3 MPV 8.8 9.1 (6-9.5) fl Sodium 142 (136-145) mEq/L Potassium 3.2 L (3.5-5.1) mEq/L Chloride 108 H (98-107) mEq/L Carbon Dioxide 24.8 (21-32) mEq/L Anion Gap 12.8 (5-15) MEQ/L BUN 3 L (9-20) mg/dL Creatinine 1.01 (0.55-1.30) mg/dl Estimated GFR > 60 ML/MIN Glucose 178 H (70-110) MG/DL Calcium 7.7 L (8.5-10.1) mg/dL Total Bilirubin 0.40 (0.2-1.0) mg/dL AST 29 (15-37) U/L ALT 131 H (12-78) U/L Alkaline Phosphatase 153 H (46-116) U/L Serum Total Protein 5.9 L (6.4-8.2) gm/dL Albumin 2.1 L (3.4-5.0) g/dL 05/09/17 Range/Units 06:00 WBC (4.0-10.5) K/mm3 RBC (4.1-5.6) M/mm3 Hgb (12.5-18.0) gm/dl Hct (42-50) % MCV (78-100) fl MCH (26-32) pg MCHC (32-36) g/dl RDW (11.5-14.0) % Plt Count (150-450) K/mm3 MPV (6-9.5) fl Sodium 144 (136-145) mEq/L Potassium 3.1 L (3.5-5.1) mEq/L Chloride 110 H (98-107) mEq/L Carbon Dioxide 25.4 (21-32) mEq/L Anion Gap 11.6 (5-15) MEQ/L BUN 2 L (9-20) mg/dL Creatinine 0.77 (0.55-1.30) mg/dl Estimated GFR > 60 ML/MIN Glucose 112 H (70-110) MG/DL Calcium 7.9 L (8.5-10.1) mg/dL Total Bilirubin 0.30 (0.2-1.0) mg/dL AST 21 (15-37) U/L ALT 98 H (12-78) U/L Alkaline Phosphatase 129 H (46-116) U/L Serum Total Protein 5.5 L (6.4-8.2) gm/dL Albumin 2.0 L (3.4-5.0) g/dL Assessment/Plan (1) Sepsis Current Visit: Yes Status: Resolved Qualifiers: Sepsis type: sepsis due to unspecified organism Qualified Code(s): A41.9 - Sepsis, unspecified organism Assessment & Plan: improved (2) Acute cholangitis Current Visit: Yes Status: Acute Assessment & Plan: E coli on blood cultures. continue zosyn Code(s): K83.0 - CHOLANGITIS (3) Elevated troponin Current Visit: Yes Status: Resolved Code(s): R74.8 - ABNORMAL LEVELS OF OTHER SERUM ENZYMES (4) Pancreatic cancer Current Visit: Yes Status: Acute Qualifiers: Pancreatic malignancy location: unspecified Qualified Code(s): C25.9 - Malignant neoplasm of pancreas, unspecified
[2017-05-09] MEDS: Klor Con 10 MEQ PO SCH ×2 (11:03→22:04)
[2017-05-09] MEDS: Protonix 40MG Tablet PO SCH (12:20)
[2017-05-09 14:22] LABS: 027 TOX PROD PRESUMPTIVE NEGATIVE (NEGATIVE); TOXIGENIC C. DIFF ORG NEGATIVE (NEGATIVE)
[2017-05-10 05:41] LABS: Hematocrit 30.7 % (42-50); Hemoglobin 9.7 gm/dl (12.5-18.0); Mean Corpuscular Hgb Concent. 31.6 g/dl (32-36); Mean Platelet Volume 9.3 fl (6-9.5); Platelet Count 294 K/mm3 (150-450); Red Blood Count 3.53 M/mm3 (4.1-5.6); White Blood Count 6.5 K/mm3 (4.0-10.5)
[2017-05-10 05:46] LABS: Mean Corpuscular Hemoglobin 27.4 pg (26-32)
[2017-05-10 05:54] LABS: ALBUMIN 2.9 g/dl (3.5-5.0); ALKALINE PHOSPHATASE 121 U/L (38-126); ANION GAP 12.4 MEQ/L; BLOOD UREA NITROGEN 4 mg/dl (9-20); CHLORIDE 106 mEq/L (98-107); Calcium 8.7 mg/dl (8.4-10.2); Carbon Dioxide 27 mmol/L (22-30); Creatinine 1 0.74 mg/dl (0.66-1.25); Glucose 109 mg/dL (74-106); Potassium 3.6 mmol/L (3.5-5.1); SGOT/AST 26 U/L (17-59); SGPT/ALT 82 U/L (0-50); SODIUM 141 mmol/L (137-145); Total Protein 5.8 mg/dl (6.3-8.2)
[2017-05-10] MEDS: Zofran 4 MG/2 ML VIAL IV PRN (06:07)
[2017-05-10] MEDS: Zosyn 3.375GM/100 Ml D5W 3.375 GM/100 ML IVPB IV SCH (06:24)
[2017-05-10] MEDS: Oxy-IR 5 MG PO PRN (06:42)
[2017-05-10 07:10] VITALS: BP 174/78; PULSE 75; O2SAT 97
--- NOTE | 2017-05-10 09:10 | PCM.DS ---
Discharge Summary Date of Admission: 05/05/17 07:50 Admitting Physician: DONTAE NAQVI Consults: Consults on Case 05/05/17 09:12 Consult Cardiology ROUTINE Primary Care Provider: DONTAE NAQVI Allergies Allergies No Known Drug Allergies Allergy (Unverified 05/05/17 03:24) Hospital Summary - Hospital Course Hospital Course: patient a patient from [place] with pancreatic cancer, had a whipple procedure done about 4 months ago, on chemo at this time. had finding of cholangitis on arrival , improved with treatment. was awaiting placement at [place] and they never came up with a bed. has improved, blood cultures with E coli 2/2 and doing much better. LFT's and alk phos improved, he is tolerating po and has no fever. - Vitals & Intake/Output Vital Signs: Vital Signs Temperature 98.3 F 05/10/17 07:09 Pulse Rate 75 05/10/17 07:09 Respiratory Rate 18 05/10/17 07:09 Blood Pressure 174/78 05/10/17 07:09 O2 Sat by Pulse Oximetry 97 05/10/17 07:09 Intake & Output: Intake & Output 05/07/17 05/08/17 05/09/17 05/10/17 11:59 11:59 11:59 11:59 Intake Total 1799 4394 5156 3422 Output Total 2977 9578 336 1419 Balance -1176 7014 2797 -8441 Weight 63.2 kg 63.8 kg 64.7 kg - Lab Result Diagrams: 05/10/17 05:00 05/10/17 05:00 Lab Results-Last 24 Hrs: Lab Results-Last 24 Hours 05/09/17 05/10/17 05/10/17 Range/Units 10:31 05:00 05:00 WBC 6.5 (4.0-10.5) K/mm3 RBC 3.53 L (4.1-5.6) M/mm3 Hgb 9.7 L (12.5-18.0) gm/dl Hct 30.7 L (42-50) % MCV 87.0 (78-100) fl MCH 27.4 (26-32) pg MCHC 31.6 L (32-36) g/dl RDW 18.0 H (11.5-14.0) % Plt Count 294 (150-450) K/mm3 MPV 9.3 (6-9.5) fl Sodium 141 (137-145) mmol/L Potassium 3.6 (3.5-5.1) mmol/L Chloride 106 (98-107) mEq/L Carbon Dioxide 27 (22-30) mmol/L Anion Gap 12.4 MEQ/L BUN 4 L (9-20) mg/dl Creatinine 0.74 (0.66-1.25) mg/dl Estimated GFR > 60 ML/MIN Glucose 109 H (74-106) mg/dL Calcium 8.7 (8.4-10.2) mg/dl Total Bilirubin 0.30 (0.2-1.3) mg/d? AST 26 (17-59) U/L ALT 82 H (0-50) U/L Alkaline Phosphatase 121 (38-126) U/L Serum Total Protein 5.8 L (6.3-8.2) mg/dl Albumin 2.9 L (3.5-5.0) g/dl Stl C. diff Tox B Gene NEGATIVE (NEGATIVE) C.difficile [id number] PRESUMPTIVE NEGATIVE (NEGATIVE) Discharge Exam General Appearance: no apparent distress, alert, thin Skin Exam: normal color, warm, dry Respiratory Exam: normal breath sounds, lungs clear, No respiratory distress Cardiovascular Exam: regular rate/rhythm, normal heart sounds Gastrointestinal/Abdomen Exam: soft, No tenderness, No mass Extremity Exam: normal inspection, normal range of motion Final Diagnosis/Problem List - Final Discharge Diagnosis/Problem (1) Sepsis Current Visit: Yes Status: Resolved Assessment & Plan: [place] sensitive E coli on blood culture 04/08, treated with zosyn here. home on po cipro and to [facility] (2) Acute cholangitis Current Visit: Yes Status: Acute (3) Elevated troponin Current Visit: Yes Status: Resolved (4) Pancreatic cancer Current Visit: Yes Status: Acute - Discharge Disposition: Home, Self-Care Condition: Good Prescriptions: New Ciprofloxacin [Cipro 500 MG] 500 mg PO BID #14 tablet Continue Prochlorperazine Maleate 10 mg PO Q6HPRN PRN PRN Reason: Nausea Ondansetron [Zofran Odt] 4 mg PO Q6HPRN PRN PRN Reason: Nausea Lansoprazole 30 mg PO LUNCH Clonazepam 0.5 mg [Klonopin 0.5 MG] 0.5 mg PO BIDPRN PRN PRN Reason: Anxiety Docusate Sodium 100 mg PO BID Loperamide HCl 2 mg [Imodium 2 mg] 2 mg PO Q12H PRN PRN PRN Reason: Diarrhea Oxycodone HCl 10 mg PO Q4H PRN PRN Reason: Pain Follow up with: DONTAE NAQVI MD [Primary Care Provider] - 1 Week
[2017-05-10] MEDS: Klor Con 10 MEQ PO SCH (09:51)
== END 2017-05-10 11:30 | disposition home or self-care (01) | DRG 872 ==
LOC: ED 03:09 → ICU 07:50 → MED SURG 05-09 02:15
PROVIDERS: ADMIT Family Medicine; ATTEND Family Medicine
DX: K52.9 Noninfective gastroenteritis and colitis, unspecified (principal); R50.9 Fever, unspecified; Z79.899 Other long term (current) drug therapy; A41.9 Sepsis, unspecified organism; K83.0 Cholangitis; C25.9 Malignant neoplasm of pancreas, unspecified; R79.1 Abnormal coagulation profile; J45.909 Unspecified asthma, uncomplicated; Z85.038 Personal history of other malignant neoplasm of large intestine; M54.2 Cervicalgia; R10.13 Epigastric pain; G47.9 Sleep disorder, unspecified; Z85.72 Personal history of non-Hodgkin lymphomas; Z87.891 Personal history of nicotine dependence
CPT/HCPCS: 36000; 36415; 71260; 74177; 80053; 81000; 82150; 83605; 83690; 84484; 85025; 85027; 85610; 85730; 87040; 87077; 87186; 87493; 87631; 93005; 93306; 96360; 96361; 96365; 96374; 96375; 99285; J2270; J2405; J2543; A9270-GY

== ENCOUNTER 2017-08-23 18:28 | Inpatient (IN) | payer OTHER, MEDICARE ==
[2017-08-23] MEDS ORDERED: Zofran 4 MG/2 ML VIAL IV STA (19:02)
[2017-08-23] MEDS ORDERED: Sodium Chloride 0.9% 1000 ML 1,000 ML IV STA (19:02)
--- NOTE | 2017-08-23 19:14 | ERPHSYRPT ---
- History of Present Illness Time Seen by Provider: 08/23/17 18:53 Source: patient Exam Limitations: no limitations Physician History: Pt underwent Whipple procedure in 2016, due to pancreatic cancer. He was treated with E. Coli sepsis in May of this year at the [facility] in [place] after chemotherapy. He has been nauseated, sick for few days, lost some weight, had a CT abdomen, pelvis in the [facility] on 08/18/17. It was apparently negative. He developed fever, 103 F today, feels weak, and nauseated, but denies any pain, cough, SOB, headaches, sore throat or other complaints. He has been taking PO Vancomycin for C. diff, and still having diarrhea off and on. He denies severe abdominal pain or cramps, also denies urinary complaints. Timing/Duration: today Fever Severity: moderate Fever Therapy LEAF TINNER: none Associated Symptoms: nausea/vomiting Allergies/Adverse Reactions: No Known Drug Allergies Allergy (Verified 08/23/17 19:09) Home Medications: Lansoprazole 30 mg PO LUNCH 05/05/17 [History] Loperamide HCl 2 mg [Imodium 2 mg] 2 mg PO Q12H PRN PRN 05/05/17 [History] Oxycodone HCl 10 mg PO Q4H PRN 05/05/17 [History] Prochlorperazine Maleate 10 mg PO Q6HPRN PRN 05/05/17 [History] Hydroxyzine HCl 10 mg PO 08/23/17 [History] Lipase/Protease/Amylase [Gomez Lockwood 36,000 Units Capsule] 1 each PO DAILY [History] Vancomycin HCl [Vancomycin 25Mg/ml Oral Solution Compound Kit] 125 ml PO CLARIFY MDD every other day 08/23/17 [History] Hx Tetanus, Diphtheria Vaccination/Date Given: Yes - Review of Systems Constitutional: Fever, Chills, Weakness Abdominal/Gastrointestinal: Nausea All Other Systems: Reviewed and Negative - Past Medical History Pertinent Past Medical History: No Neurological History: No Pertinent History ENT History: No Pertinent History Cardiac History: Other Respiratory History: Asthma Endocrine Medical History: No Pertinent History Musculoskeletal History: Other GI Medical History: Colorectal Cancer, Diverticulosis, Other History: No Pertinent History Psycho-Social History: Other Male Reproductive Disorders: No Pertinent History Other Medical History: neck pain, vertigo, pancreatic cencer, non hodgkin lymphoma, sleep disorder, lumbago - Past Surgical History Past Surgical History: Yes Neuro Surgical History: No Pertinent History Cardiac: No Pertinent History Respiratory: No Pertinent History Gastrointestinal: Other Other Surgical History: whipple, pancreatic cancer - Social History Smoking Status: Former smoker Drug Use: none - Nursing Vital Signs Nursing Vital Signs: Initial Vital Signs Temperature 103 F 08/23/17 18:55 Pulse Rate 117 H 08/23/17 18:55 Respiratory Rate 20 08/23/17 18:55 Blood Pressure 149/88 08/23/17 18:55 O2 Sat by Pulse Oximetry 98 08/23/17 18:55 Pain Scale Pain Intensity 5 - Physical Exam General Appearance: no apparent distress Eye Exam: eyes nml inspection ENT Exam: normal ENT inspection, pharynx normal Neck Exam: normal inspection, non-tender, supple, trachea midline, No JVD, No lymphadenopathy (R), No lymphadenopathy (L) Respiratory Exam: normal breath sounds, chest non-tender, lungs clear, no respiratory distress Cardiovascular/Chest Exam: regular rate/rhythm, murmur (2/6 systolic over left parasternal area), normal peripheral pulses, tachycardia, No edema, No JVD Gastrointestinal/Abdominal Exam: soft, no distention, no mass, no guarding, no organomegaly, no pulsatile mass, normal bowel sounds, tenderness (mild, diffuse) , No distended, No guarding, No rebound Extremity Exam: non-tender, no calf tenderness Neurologic Exam: alert, oriented x 3, normal mood/affect Skin Exam: normal color, warm, dry, No rash Lymphatic: No adenopathy SpO2 Interpretation: normal Oxygen Delivery: Room Air - Course Nursing assessment & vital signs reviewed: Yes EKG Interpreted by Me: RATE (97/min), Left Scotts Deviation, NORMAL INTERVALS, Non -specific ST Changes - Radiology Exams Chest X-ray Interpretation: Interpreted by me, Negative - CT Exams Abdomen/Pelvis CT Interpretation: Tele-radiologist Report, Other (stable infiltration @ saumya hepatis with prominent biliary tree, r/o cholangitis) Ordered Tests: Active Orders 24 hr Category Date Time Status Maintenance Repairman STAT Care 08/23/17 19:03 Active EKG-ER Only STAT Care 08/23/17 19:02 Active IV Insertion STAT Care 08/23/17 19:02 Active Pulse Oximetry (ED) STAT Care 08/23/17 19:02 Active ABDOMEN AND PELVIS W CONTRAST [CT] Stat Exams 08/23/17 20:47 Taken CHEST 2 VIEWS (PA AND LAT) Stat Exams 08/23/17 19:03 Taken BLOOD CULTURE Stat Lab 08/23/17 19:30 Received CBC W DIFF Stat Lab 08/23/17 19:30 Completed CMP Stat Lab 08/23/17 19:30 Completed CULTURE, THROAT Stat Lab 08/23/17 19:02 Received LIPASE Stat Lab 08/23/17 22:01 Ordered Lactic Acid Stat Lab 08/23/17 19:40 Completed Lactic Acid Stat Lab 08/23/17 21:45 Ordered [place] Screen Stat Lab 08/23/17 19:30 Completed Occult Blood,Stool Other Stat Lab 08/23/17 19:06 Uncollected STREP SCREEN-BETA A Stat Lab 08/23/17 19:02 Completed UA W/ MICROSCOPIC Stat Lab 08/23/17 20:22 Completed Medication Summary Generic Name Dose Route Start Last Admin Trade Name Freq PRN Reason Stop Dose Admin Piperacillin Sod/Tazobactam Sod 3.375 gm in 100 mls @ 200 mls/hr 08/23/17 21: 57 Zosyn 3.375gm/100 Ml D5w IV 08/23/17 22:26 STAT STA Oxycodone HCl 10 mg 08/24/17 22:13 Oxycontin 10 Mg Er PO 08/24/17 22:14 NOW ONE Discontinued Medications Generic Name Dose Route Start Last Admin Trade Name Freq PRN Reason Stop Dose Admin Acetaminophen 1,000 mg 08/23/17 19:20 08/23/17 19:53 Tylenol Extra Strength 500 Mg PO 08/23/17 19:21 1,000 mg NOW ONE Administration Acetaminophen Confirm 08/23/17 19:43 Tylenol Extra Strength 500 Mg Administered 08/23/17 19:44 Dose 1,000 mg .ROUTE .STK-MED ONE Sodium Chloride 1,000 mls @ 999 mls/hr 08/23/17 19:02 08/23/17 21:00 Sodium Chloride 0.9% 1000 Ml IV 08/23/17 20:02 Infused .Q1H1M STA Infusion Sodium Chloride Confirm 08/23/17 19:43 Sodium Chloride 0.9% 1000 Ml Administered 08/23/17 19:44 Dose 1,000 mls @ ud .ROUTE .STK-MED ONE Piperacillin Sod/Tazobactam Sod Confirm 08/23/17 21:59 Zosyn 3.375gm/100 Ml D5w Administered 08/23/17 22:00 Dose 3.375 gm in 100 mls @ ud IV .STK-MED ONE Ondansetron HCl 4 mg 08/23/17 19:02 08/23/17 19:53 Zofran 4 Mg/2 Ml Vial IV 08/23/17 19:03 4 mg STAT STA Administration Ondansetron HCl Confirm 08/23/17 19:43 Zofran 4 Mg/2 Ml Vial Administered 08/23/17 19:44 Dose 4 mg .ROUTE .STK-MED ONE Lab/Rad Data: Laboratory Result Diagrams 08/23/17 19:30 08/23/17 19:30 Laboratory Results 08/23/17 08/23/17 08/23/17 Range/Units 20:22 19:40 19:30 WBC (4.0-10.5) K/mm3 RBC (4.1-5.6) M/mm3 Hgb (12.5-18.0) gm/dl Hct (42-50) % MCV (78-100) fl MCH (26-32) pg MCHC (32-36) g/dl RDW (11.5-14.0) % Plt Count (150-450) K/mm3 MPV (6-9.5) fl Gran % (36.0-66.0) % Eos # (Auto) (0-0.5) Absolute Lymphs (auto) (1.0-4.6) Absolute Monos (auto) (0.0-1.3) Lymphocytes % (24.0-44.0) % Monocytes % (0.0-12.0) % Eosinophils % (0.00-5.0) % Basophils % (0.0-0.4) % Absolute Granulocytes (1.4-6.9) Basophils # (0-0.4) Sodium (137-145) mmol/L Potassium (3.5-5.1) mmol/L Chloride (98-107) mmol/L Carbon Dioxide (22-30) mmol/L Anion Gap (5-15) MEQ/L BUN (9-20) mg/dL Creatinine (0.66-1.25) mg/dL Estimated GFR ML/MIN Glucose (74-106) mg/dL Lactic Acid 2.3 H (0.4-2.0) Calcium (8.4-10.2) mg/dL Total Bilirubin (0.2-1.3) mg/dL AST (17-59) U/L ALT (0-50) U/L Alkaline Phosphatase (38-126) U/L Serum Total Protein (6.3-8.2) g/dL Albumin (3.5-5.0) g/dL Ur Collection Type VOID Urine Color YELLOW (YELLOW) Urine Appearance CLEAR (CLEAR) Urine pH 5.0 (5-6) Ur Specific [place] 1.020 (1.005-1.025) Urine Protein NEGATIVE (Negative) Urine Ketones SMALL (NEGATIVE) Urine Blood 250 (0-5) Errol/ul Urine Nitrite NEGATIVE (NEGATIVE) Urine Bilirubin NEGATIVE (NEGATIVE) Urine Urobilinogen NORMAL (0-1) mg/dL Ur Leukocyte Esterase NEGATIVE (NEGATIVE) Urine Microscopic RBC 5-10 (0-2) /HPF Urine Microscopic WBC 0-2 (0-5) /HPF Ur Epithelial Cells RARE (FEW) /HPF Urine Bacteria RARE (NEGATIVE) /HPF Urine Culture Reflexed NO (NO) Urine Glucose 250 (NEGATIVE) mg/dL Monoscreen (Negative) Influenza Type A Ag NEGATIVE (NEGATIVE) Influenza Type B Ag NEGATIVE (NEGATIVE) RSV (PCR) NEGATIVE (Negative) Streptococcus Screen (Negative) Specimen Received 08/23/17 2020 08/23/17 08/23/17 08/23/17 Range/Units 19:30 19:30 19:30 WBC 12.1 H (4.0-10.5) K/mm3 RBC 4.96 (4.1-5.6) M/mm3 Hgb 14.5 (12.5-18.0) gm/dl Hct 43.4 (42-50) % MCV 87.5 (78-100) fl MCH 29.2 (26-32) pg MCHC 33.4 (32-36) g/dl RDW 14.0 (11.5-14.0) % Plt Count 228 (150-450) K/mm3 MPV 10.7 H (6-9.5) fl Gran % 86.5 H (36.0-66.0) % Eos # (Auto) 0.01 (0-0.5) Absolute Lymphs (auto) 0.65 L (1.0-4.6) Absolute Monos (auto) 0.95 (0.0-1.3) Lymphocytes % 5.4 L (24.0-44.0) % Monocytes % 7.9 (0.0-12.0) % Eosinophils % 0.1 (0.00-5.0) % Basophils % 0.1 (0.0-0.4) % Absolute Granulocytes 10.45 H (1.4-6.9) Basophils # 0.01 (0-0.4) Sodium 135 L (137-145) mmol/L Potassium 4.4 (3.5-5.1) mmol/L Chloride 99 (98-107) mmol/L Carbon Dioxide 25 (22-30) mmol/L Anion Gap 15.6 H (5-15) MEQ/L BUN 17 (9-20) mg/dL Creatinine 0.68 (0.66-1.25) mg/dL Estimated GFR > 60.0 ML/MIN Glucose 291 H (74-106) mg/dL Lactic Acid (0.4-2.0) Calcium 9.4 (8.4-10.2) mg/dL Total Bilirubin 0.90 (0.2-1.3) mg/dL AST 23 (17-59) U/L ALT 23 (0-50) U/L Alkaline Phosphatase 114 (38-126) U/L Serum Total Protein 8.0 (6.3-8.2) g/dL Albumin 4.4 (3.5-5.0) g/dL Ur Collection Type Urine Color (YELLOW) Urine Appearance (CLEAR) Urine pH (5-6) Ur Specific [place] (1.005-1.025) Urine Protein (Negative) Urine Ketones (NEGATIVE) Urine Blood (0-5) Errol/ul Urine Nitrite (NEGATIVE) Urine Bilirubin (NEGATIVE) Urine Urobilinogen (0-1) mg/dL Ur Leukocyte Esterase (NEGATIVE) Urine Microscopic RBC (0-2) /HPF Urine Microscopic WBC (0-5) /HPF Ur Epithelial Cells (FEW) /HPF Urine Bacteria (NEGATIVE) /HPF Urine Culture Reflexed (NO) Urine Glucose (NEGATIVE) mg/dL Monoscreen POSITIVE (Negative) Influenza Type A Ag (NEGATIVE) Influenza Type B Ag (NEGATIVE) RSV (PCR) (Negative) Streptococcus Screen (Negative) Specimen Received 08/23/17 Range/Units 19:02 WBC (4.0-10.5) K/mm3 RBC (4.1-5.6) M/mm3 Hgb (12.5-18.0) gm/dl Hct (42-50) % MCV (78-100) fl MCH (26-32) pg MCHC (32-36) g/dl RDW (11.5-14.0) % Plt Count (150-450) K/mm3 MPV (6-9.5) fl Gran % (36.0-66.0) % Eos # (Auto) (0-0.5) Absolute Lymphs (auto) (1.0-4.6) Absolute Monos (auto) (0.0-1.3) Lymphocytes % (24.0-44.0) % Monocytes % (0.0-12.0) % Eosinophils % (0.00-5.0) % Basophils % (0.0-0.4) % Absolute Granulocytes (1.4-6.9) Basophils # (0-0.4) Sodium (137-145) mmol/L Potassium (3.5-5.1) mmol/L Chloride (98-107) mmol/L Carbon Dioxide (22-30) mmol/L Anion Gap (5-15) MEQ/L BUN (9-20) mg/dL Creatinine (0.66-1.25) mg/dL Estimated GFR ML/MIN Glucose (74-106) mg/dL Lactic Acid (0.4-2.0) Calcium (8.4-10.2) mg/dL Total Bilirubin (0.2-1.3) mg/dL AST (17-59) U/L ALT (0-50) U/L Alkaline Phosphatase (38-126) U/L Serum Total Protein (6.3-8.2) g/dL Albumin (3.5-5.0) g/dL Ur Collection Type Urine Color (YELLOW) Urine Appearance (CLEAR) Urine pH (5-6) Ur Specific [place] (1.005-1.025) Urine Protein (Negative) Urine Ketones (NEGATIVE) Urine Blood (0-5) Errol/ul Urine Nitrite (NEGATIVE) Urine Bilirubin (NEGATIVE) Urine Urobilinogen (0-1) mg/dL Ur Leukocyte Esterase (NEGATIVE) Urine Microscopic RBC (0-2) /HPF Urine Microscopic WBC (0-5) /HPF Ur Epithelial Cells (FEW) /HPF Urine Bacteria (NEGATIVE) /HPF Urine Culture Reflexed (NO) Urine Glucose (NEGATIVE) mg/dL Monoscreen (Negative) Influenza Type A Ag (NEGATIVE) Influenza Type B Ag (NEGATIVE) RSV (PCR) (Negative) Streptococcus Screen NEGATIVE (Negative) Specimen Received - Progress Progress: improved Progress Note: 08/23/17 22:15 Pt was given iv saline, Zosyn, Zofran, improved, afebrile, stable, lactic acid : 2.3, We called [facility] in [place], they are on diversion, I called Dr Wills, discussed our findings, and this patient's current condition, he agreed to admit him for further care to medical bed. 08/23/17 22:17 I informed patient, he agreed to be admitted here. Discussed with .: Elma Will see patient in: hospital (full admit) Counseled pt/family regarding: lab results, diagnosis, need for follow-up, rad results - Departure Time of Disposition: 22:16 Departure Disposition: In-patient Admission Clinical Impression: Cholangitis Fever Qualifiers: Fever type: unspecified Qualified Code(s): R50.9 - Fever, unspecified Condition: Stable Critical Care Time: No Referrals: [facility]OSPITAL,'[facility] [Primary Care Provider] -
[2017-08-23] MEDS ORDERED: TYLENOL EXTRA STRENGTH 500 MG PO ONE (19:20)
[2017-08-23] MEDS ORDERED: Zofran 4 MG/2 ML VIAL ONE (19:43)
[2017-08-23] MEDS ORDERED: TYLENOL EXTRA STRENGTH 500 MG ONE (19:43)
[2017-08-23] MEDS ORDERED: Sodium Chloride 0.9% 1000 ML 1,000 ML ONE (19:43)
[2017-08-23 19:46] LABS: Lactic Acid 2.3 (0.4-2.0)
[2017-08-23 19:46] LABS: BASOPHIL % 0.1 % (0.0-0.4); Basophil (Absolute #) 0.01 (0-0.4); Eosinophil % 0.1 % (0.00-5.0); Eosinophil (Absolute #) 0.01 (0-0.5); Granulocyte Absolute (ANC) 10.45 (1.4-6.9); Granulocytes % 86.5 % (36.0-66.0); Hematocrit 43.4 % (42-50); Hemoglobin 14.5 gm/dl (12.5-18.0); Lymphocyte (Absolute #) 0.65 (1.0-4.6); Lymphocytes % 5.4 % (24.0-44.0); Mean Cell Volume 87.5 fl (78-100); Mean Corpuscular Hemoglobin 29.2 pg (26-32); Mean Corpuscular Hgb Concent. 33.4 g/dl (32-36); Mean Platelet Volume 10.7 fl (6-9.5); Monocyte (Absolute #) 0.95 (0.0-1.3); Monocytes % 7.9 % (0.0-12.0); Platelet Count 228 K/mm3 (150-450); Red Blood Count 4.96 M/mm3 (4.1-5.6); White Blood Count 12.1 K/mm3 (4.0-10.5)
[2017-08-23 20:00] LABS: ALBUMIN 4.4 g/dL (3.5-5.0); ALKALINE PHOSPHATASE 114 U/L (38-126); ANION GAP 15.6 MEQ/L (5-15); BLOOD UREA NITROGEN 17 mg/dL (9-20); CHLORIDE 99 mmol/L (98-107); Calcium 9.4 mg/dL (8.4-10.2); Carbon Dioxide 25 mmol/L (22-30); Creatinine 1 0.68 mg/dL (0.66-1.25); Glucose 291 mg/dL (74-106); Potassium 4.4 mmol/L (3.5-5.1); SGOT/AST 23 U/L (17-59); SGPT/ALT 23 U/L (0-50); SODIUM 135 mmol/L (137-145)
[2017-08-23 20:39] LABS: Appearance CLEAR (CLEAR); Bacteria RARE /HPF (NEGATIVE); Bilirubin NEGATIVE (NEGATIVE); Blood 250 Ery/ul (0-5); Epithelial Cells RARE /HPF (FEW); Glucose 250 mg/dL (NEGATIVE); Ketones SMALL (NEGATIVE); Leukocyte Esterase NEGATIVE (NEGATIVE); Nitrite NEGATIVE (NEGATIVE); Protein,Urine Dip NEGATIVE (Negative); Urobilinogen NORMAL mg/dL (0-1); WBC 0-2 /HPF (0-5)
[2017-08-23 20:43] LABS: INFLUENZA A NEGATIVE (NEGATIVE); INFLUENZA B NEGATIVE (NEGATIVE); RESPIRATORY SYNCTIAL VIRUS NEGATIVE (Negative)
[2017-08-23] MEDS ORDERED: Zosyn 3.375GM/100 Ml D5W 3.375 GM/100 ML IVPB IV STA (21:57)
[2017-08-23] MEDS ORDERED: Zosyn 3.375GM/100 Ml D5W 3.375 GM/100 ML IVPB IV ONE (21:59)
[2017-08-23] MEDS ORDERED: OXYCODONE-ACETAMINOPHEN 10-325 ONE (22:17)
[2017-08-23 23:06] LABS: 027 TOX PROD PRESUMPTIVE NEGATIVE (NEGATIVE); TOXIGENIC C. DIFF ORG NEGATIVE (NEGATIVE)
[2017-08-24] MEDS: Sodium Chloride 0.9% 1000 ML 1,000 ML IV SCH ×3 (01:05→22:39)
[2017-08-24] MEDS: Zosyn 3.375GM/100 Ml D5W 3.375 GM/100 ML IVPB IV SCH ×4 (04:55→18:20)
[2017-08-24 05:41] LABS: Granulocyte Absolute (ANC) 6.23 (1.4-6.9); Hematocrit 40.1 % (42-50); Hemoglobin 13.3 gm/dl (12.5-18.0); Mean Cell Volume 88.5 fl (78-100); Mean Corpuscular Hemoglobin 29.4 pg (26-32); Mean Corpuscular Hgb Concent. 33.2 g/dl (32-36); Mean Platelet Volume 10.8 fl (6-9.5); Platelet Count 195 K/mm3 (150-450); Red Blood Count 4.53 M/mm3 (4.1-5.6); White Blood Count 7.7 K/mm3 (4.0-10.5)
[2017-08-24 06:01] LABS: ALBUMIN 3.5 g/dL (3.5-5.0); ALKALINE PHOSPHATASE 87 U/L (38-126); ANION GAP 11.8 MEQ/L (5-15); BLOOD UREA NITROGEN 12 mg/dL (9-20); CHLORIDE 104 mmol/L (98-107); Calcium 8.7 mg/dL (8.4-10.2); Carbon Dioxide 26 mmol/L (22-30); Creatinine 1 0.67 mg/dL (0.66-1.25); Glucose 159 mg/dL (74-106); Potassium 3.9 mmol/L (3.5-5.1); SGOT/AST 32 U/L (17-59); SGPT/ALT 25 U/L (0-50); SODIUM 138 mmol/L (137-145); Total Protein 6.6 g/dL (6.3-8.2)
--- NOTE | 2017-08-24 08:32 | PCM.HP ---
History of Present Illness - Chief Complaint Chief Complaint: Fever for 3 days History of Present Illness: is a 72 year old male.Pt underwent Whipple procedure in 2016, due to pancreatic cancer. He was treated with E. Coli sepsis in May of this year at the [facility] in [place] after chemotherapy. He has been nauseated, sick for few days, lost some weight, had a CT abdomen, pelvis in the [facility] on 08/18. It was apparently negative. He developed fever, 103 F today, feels weak, and nauseated, but denies any pain, cough, SOB, headaches, sore throat or other complaints. He has been taking PO Vancomycin for C. diff, and still having diarrhea off and on. He denies severe abdominal pain or cramps, also denies urinary complaints. - Review of Systems Constitutional: Fever, Chills Eyes: No Symptoms Ears, Nose, & Throat: No Symptoms Respiratory: No Cough, No Short Of Breath Cardiac: No Chest Pain, No Edema, No Syncope Abdominal/Gastrointestinal: No Abdominal Pain, No Nausea, No Vomiting, No Diarrhea Genitourinary Symptoms: No Dysuria Musculoskeletal: No Back Pain, No Neck Pain Skin: No Rash Neurological: No Dizziness, No Focal Weakness, No Sensory Changes Psychological: No Symptoms Endocrine: No Symptoms Hematologic/Lymphatic: No Symptoms Immunological/Allergic: No Symptoms Medications & Allergies Home Medications: Home Medication List Lansoprazole 30 mg PO LUNCH 05/05/17 [History Confirmed 08/24/17] Loperamide HCl 2 mg [Imodium 2 mg] 2 mg PO Q12H PRN PRN 05/05/17 [History Confirmed 08/24/17] Oxycodone HCl 10 mg PO Q4H PRN 05/05/17 [History Confirmed 08/24/17] Prochlorperazine Maleate 10 mg PO Q6HPRN PRN 05/05/17 [History Confirmed ] Hydroxyzine HCl 10 mg PO DAILY PRN PRN 08/23/17 [History Confirmed 08/24/17] Lipase/Protease/Amylase [Gomez Lockwood 36,000 Units Capsule] 1 each PO TIDWMEALS [History Confirmed 08/24/17] Vancomycin HCl [Vancomycin 25Mg/ml Oral Solution Compound Kit] 125 ml PO CLARIFY MDD every other day 08/23/17 [History Confirmed 08/24/17] Allergies/Adverse Reactions: Allergies Allergy/AdvReac Type Severity Reaction Status Date / Time No Known Drug Allergies Allergy Verified 08/23/17 19:09 - Past Medical History Past Medical History: No Neurological History: No Pertinent History ENT History: No Pertinent History Cardiac History: Other Respiratory History: Asthma Endocrine Medical History: No Pertinent History Musculoskelatal History: Other GI Medical History: Colorectal Cancer, Diverticulosis, Other History: No Pertinent History Pyscho-Social History: Other Male Reproductive Disorders: No Pertinent History Comment: neck pain, vertigo, pancreatic cancer, non hodgkins lymphoma, sleep disorder, lumbago - Past Surgical History Past Surgical History: Yes Neuro Surgical History: No Pertinent History Cardiac History: No Pertinent History Respiratory Surgery: No Pertinent History GI Surgical History: Other Genitourinary Surgical Hx: No Pertinent History Musculskeletal Surgical Hx: No Pertinent History Male Surgical History: No Pertinent History Other Surgical History: whipple, pancreatic cancer - Social History Smoking Status: Former smoker Exposure to second hand smoke: Yes (sometimes) Alcohol: None Drug Use: none - Physical Exam Vital Signs: Vital Signs - 24 hr Temp Pulse Resp BP Pulse Ox 08/24/17 07:28 98.8 F 85 18 129/60 96 08/24/17 04:00 98.4 F 64 16 113/61 99 08/23/17 23:53 98.6 F 87 16 118/58 98 08/23/17 22:29 99.4 F 08/23/17 22:18 85 18 136/65 97 08/23/17 20:11 97 H 18 151/71 98 08/23/17 18:55 103 F 117 H 20 149/88 98 General Appearance: no apparent distress, alert Neurologic Exam: alert, oriented x 3, cooperative, normal mood/affect, nml cerebellar function, nml station & gait, sensation nml, No motor deficits Eye Exam: PERRL/EOMI, eyes nml inspection Ears, Nose, Throat Exam: normal ENT inspection, TMs normal, pharynx normal, moist mucous membranes Neck Exam: normal inspection, non-tender, supple, full range of motion Respiratory Exam: normal breath sounds, lungs clear, No respiratory distress Cardiovascular Exam: regular rate/rhythm, normal heart sounds, normal peripheral pulses Gastrointestinal/Abdomen Exam: soft, normal bowel sounds, No tenderness, No mass Back Exam: normal inspection, normal range of motion, No CVA tenderness, No vertebral tenderness Extremity Exam: normal inspection, normal range of motion, pelvis stable Skin Exam: normal color, warm, dry, No rash Lymphatic Exam: No adenopathy Results - Labs Lab/Micro Results: Lab Results-Last 24 Hours 08/24/17 08/24/17 08/24/17 Range/Units 04:48 04:48 05:00 WBC 7.7 (4.0-10.5) K/mm3 RBC 4.53 (4.1-5.6) M/mm3 Hgb 13.3 (12.5-18.0) gm/dl Hct 40.1 L (42-50) % MCV 88.5 (78-100) fl MCH 29.4 (26-32) pg MCHC 33.2 (32-36) g/dl RDW 14.0 (11.5-14.0) % Plt Count 195 (150-450) K/mm3 MPV 10.8 H (6-9.5) fl Absolute Granulocytes 6.23 (1.4-6.9) Sodium 138 (137-145) mmol/L Potassium 3.9 (3.5-5.1) mmol/L Chloride 104 (98-107) mmol/L Carbon Dioxide 26 (22-30) mmol/L Anion Gap 11.8 (5-15) MEQ/L BUN 12 (9-20) mg/dL Creatinine 0.67 (0.66-1.25) mg/dL Estimated GFR > 60.0 ML/MIN Glucose 159 H (74-106) mg/dL Lactic Acid 1.2 (0.4-2.0) Calcium 8.7 (8.4-10.2) mg/dL Total Bilirubin 1.00 (0.2-1.3) mg/dL AST 32 (17-59) U/L ALT 25 (0-50) U/L Alkaline Phosphatase 87 (38-126) U/L Serum Total Protein 6.6 (6.3-8.2) g/dL Albumin 3.5 (3.5-5.0) g/dL Assessment/Plan (1) Cholangitis Current Visit: Yes Status: Acute Code(s): K83.0 - CHOLANGITIS (2) Fever Current Visit: Yes Status: Acute Qualifiers: Fever type: unspecified Qualified Code(s): R50.9 - Fever, unspecified Code(s): R50.9 - FEVER, UNSPECIFIED (3) Abdominal pain Current Visit: Yes Status: Acute Qualifiers: Abdominal location: generalized Qualified Code(s): R10.84 - Generalized abdominal pain Code(s): R10.9 - UNSPECIFIED ABDOMINAL PAIN (4) Pancreatic cancer Current Visit: Yes Status: Chronic Qualifiers: Pancreatic malignancy location: unspecified
--- NOTE | 2017-08-24 08:48 | XRAY ---
Indication: Fever. History of lymphoma and pancreatic cancer. Comparison: None PA/lateral chest hyperinflated with left lung postsurgical changes and a few scattered calcified granulomas, largest right apex. No focal infiltrate, consolidation, or large effusion. Heart and mediastinal structures within normal limits. Bony thorax intact with minimal degenerative changes and minimal scoliosis. Impression: Nonacute chest with chronic features.
[2017-08-24] MEDS ORDERED: NON-FORMULARY ITEM (Hydroxyzine Hcl [Hydroxyzine Hcl] 10 MG) PO PRN (08:51)
[2017-08-24] MEDS ORDERED: IMODIUM 2 MG PO PRN (08:51)
[2017-08-24] MEDS ORDERED: PROCHLORPERAZINE MALEATE 10 MG PO PRN (08:51)
--- NOTE | 2017-08-24 08:51 | XRAY ---
Indication: Abdominal pain, nausea, diarrhea, and fever. History pancreatic cancer with Whipple procedure January 2017. Multiple contiguous axial images obtained through the abdomen and pelvis using 80 cc Isovue 370 contrast only. Comparison: May 05, 2017. Lung bases demonstrate stable left base pleural-parenchymal fibrosis/scarring. No infiltrate or effusion. Heart is not enlarged. Stable postsurgical changes related to Whipple's procedure including cholecystectomy. Stable prominent biliary tree with again moderate inflammation around the saumya hepatis possibly cholangitis. Pancreatic duct is prominent up to 5 mm. No free fluid/air. Previous pneumobilia has cleared. Noncontrasted stomach and bowel loops appear nonobstructed with slightly worsening moderate diffuse scattered colonic fecal debris throughout. Normal appendix. Stable intact distal descending colonic anastomosis and scattered hepatic/splenic calcified granulomas. Remaining liver, pancreas, spleen, adrenal glands, kidneys, ureters, and bladder appear unremarkable. Stable mild aortoiliac calcifications. No AAA or pathologic retroperitoneal lymphadenopathy. Osseous structures intact again with mild degenerative changes throughout the spine and T11 Schmorl node. Stable bilateral L5 spondylolysis with minimal grade 1 spondylolisthesis. Impression: 1. Again prominent biliary tree with inflammatory changes around the saumya hepatis. Rule out cholangitis. Also prominent pancreatic duct possible sequela. 2. Slight worsening fecal stasis without obstruction. 3. Stable findings including Whipple's procedure, bilateral L5 spondylolysis with minimal spondylolisthesis, and evidence for old granulomatous disease. CT DI 14.89
[2017-08-24] MEDS ORDERED: ATARAX 25 MG PO PRN (08:52)
[2017-08-24] MEDS ORDERED: Compazine 5 MG PO PRN (08:54)
[2017-08-24] MEDS ORDERED: VANCOMYCIN 25MG/ML ORAL SOLUTION COMPOUND KIT PO SCH (09:00)
[2017-08-24 09:02] LABS: BAND 7 % (0.0-2.0); Lymphocytes 14 % (24-44); Monocyte 8 % (0.0-12.0); Neutrophils 71 % (36.-66.); Platelet Estimate NORMAL (NORMAL); Total Cells Counted 100
[2017-08-24] MEDS ORDERED: MEDICATION INTERVENTION MC SCH (09:30)
[2017-08-24] MEDS: Pepcid 20 MG VIAL IV SCH ×2 (09:51→21:50)
[2017-08-24] MEDS: Oxycontin 10 MG ER PO PRN ×3 (09:58→22:08)
[2017-08-24] MEDS ORDERED: Oxycontin 10 MG ER PO SCH (10:00)
[2017-08-24] MEDS ORDERED: AMYLASE PO SCH (12:00)
[2017-08-24] MEDS ORDERED: LIPASE PO SCH (12:00)
[2017-08-24] MEDS ORDERED: PROTEASE PO SCH (12:00)
[2017-08-24] MEDS: PANCRELIPASE DR 5,000 UNIT CAP PO SCH ×2 (13:28→16:38)
[2017-08-24] MEDS: Protonix 40MG Tablet PO SCH (13:29)
[2017-08-24] MEDS: TYLENOL 325 MG PO PRN (16:42)
[2017-08-24] MEDS ORDERED: Oxycontin 10 MG ER PO ONE (22:13)
[2017-08-25] MEDS: Zosyn 3.375GM/100 Ml D5W 3.375 GM/100 ML IVPB IV SCH ×4 (00:09→17:37)
[2017-08-25] MEDS: Oxycontin 10 MG ER PO PRN ×4 (05:29→21:36)
[2017-08-25] MEDS: Pepcid 20 MG VIAL IV SCH ×2 (08:04→21:38)
[2017-08-25] MEDS: PANCRELIPASE DR 5,000 UNIT CAP PO SCH ×2 (08:06→11:59)
--- NOTE | 2017-08-25 08:07 | PCM.NOTE ---
Date and Time: 08/25/17805 Subjective Assessment: doing better today - Review of Systems Constitutional: No Fever, No Chills Eyes: No Symptoms Ears, Nose, & Throat: No Symptoms Respiratory: No Cough, No Short Of Breath Cardiac: No Chest Pain, No Edema, No Syncope Abdominal/Gastrointestinal: No Abdominal Pain, No Nausea, No Vomiting, No Diarrhea Genitourinary Symptoms: No Dysuria Musculoskeletal: No Back Pain, No Neck Pain Skin: No Rash Neurological: No Dizziness, No Focal Weakness, No Sensory Changes Psychological: No Symptoms Endocrine: No Symptoms Hematologic/Lymphatic: No Symptoms Immunological/Allergic: No Symptoms Objective Exam General Appearance: no apparent distress, alert Neurologic Exam: alert, oriented x 3, cooperative, normal mood/affect, nml cerebellar function, sensation nml, No motor deficits Skin Exam: normal color, warm, dry Eye Exam: PERRL, EOMI, eyes nml inspection Ears, Nose, Throat Exam: normal ENT inspection, pharynx normal, moist mucous membranes Neck Exam: normal inspection, non-tender, supple, full range of motion Respiratory Exam: normal breath sounds, lungs clear, No respiratory distress Cardiovascular Exam: regular rate/rhythm, normal heart sounds Gastrointestinal/Abdomen Exam: soft, No tenderness, No mass Extremity Exam: normal inspection, normal range of motion Back Exam: normal inspection, normal range of motion, No CVA tenderness, No vertebral tenderness Male Genitalia Exam: deferred Rectal Exam: deferred OBJECTIVE DATA Vital Signs: Vital Signs - 24 hr Temp Pulse Resp BP Pulse Ox 08/25/17 07:26 98.3 F 80 18 168/75 97 08/25/17 03:56 98.0 F 75 15 161/72 97 08/25/17 00:00 98.2 F 73 18 144/69 97 08/24/17 20:00 98.2 F 74 17 137/64 97 08/24/17 15:53 99.0 F 77 18 141/67 96 08/24/17 12:00 129/60 Pain Assessment - Last Documented Pain Intensity 7 Pain Scale Used [facility] Intake and Output: Intake & Output 08/22/17 08/23/17 08/24/17 08/25/17 11:59 11:59 11:59 11:59 Intake Total 959 4082 Output Total 100 3030 Balance 859 1052 Weight 61.8 kg Lab Results: Lab Results-Last 24 Hours 08/24/17 Range/Units 04:48 Segmented Neutrophils 71 H (36.-66.) % Band Neutrophils 7 H (0.0-2.0) % Lymphocytes (Manual) 14 L (24-44) % Monocytes (Manual) 8 (0.0-12.0) % Platelet Estimate NORMAL (NORMAL) RBC Morphology NORMAL Radiology Exams: Radiology Procedures Category Date Time Status ABDOMEN AND PELVIS W CONTRAST [CT] Stat Exams 08/23/17 20:47 Completed CHEST 2 VIEWS (PA AND LAT) Stat Exams 08/23/17 19:03 Completed Multi-Disciplinary Progress Notes: Multi-Disciplinary Progress Notes 08/24/17 08:40 (created 08/24/17 14:27) Case Management Note by Josee Cole DR. ROUNDED AND EVALUATED, DISCUSSED PLAN OF CARE. ALL QUESTION ANSWERED. PT VERBALIZED UNDERSTANDING TO ALL INFORMATION AND ABLE TO REPEAT INFORMATION BACK. DENIES ADDNL NEEDS AT THIS TIME. DISCUSSED THAT [facility] WILL UPDATE [facility] AND CHECK FOR BED STATUS. AT THIS TIME, NO BEDS AVAIL AT PRESENT. Initialized on 08/24/17 14:27 - END OF NOTE Assessment/Plan (1) Cholangitis Current Visit: Yes Status: Acute Onset Date: ~08/24/17 Assessment & Plan: improving, Last Vital Signs Temp 98.3 F 08/25/17 07:26 Pulse 80 08/25/17 07:26 Resp 18 08/25/17 07:26 BP 168/75 08/25/17 07:26 Pulse Ox 97 08/25/17 07:26 Allergies No Known Drug Allergies Allergy (Verified 08/23/17 19:09) Active Medications Acetaminophen (Tylenol 325 Mg) 650 mg PO Q4H PRN PRN PRN Reason: PAIN AND/OR FEVER Stop: 09/22/17 22:18 Last Admin: 08/24/17 16:42 Dose: 650 mg Lipase/Protease/Amylase (Pancrelipase 5,000 Unit Cap) 7 cap PO TIDWMEALS [facility] Stop: 09/23/17 11:59 Last Admin: 08/25/17 08:06 Dose: 7 cap Famotidine (Pepcid 20 Mg Vial) 20 mg IV Q12HT CRUZITO Stop: 09/23/17 09:59 Last Admin: 08/25/17 08:04 Dose: 20 mg Hydroxyzine HCl (Atarax 25 Mg) 12.5 mg PO DAILY PRN PRN PRN Reason: ANXIETY Stop: 09/23/17 08:51 Piperacillin Sod/Tazobactam Sod (Zosyn 3.375gm/100 Ml D5w) 3.375 gm in 100 mls @ 200 mls/hr IV Q6HT CRUZITO Stop: 09/23/17 00:00 Last Admin: 08/25/17 05:19 Dose: 200 mls/hr Sodium Chloride (Sodium Chloride 0.9% 1000 Ml) 1,000 mls @ 100 mls/hr IV .Q10H CRUZITO Stop: 09/22/17 22:29 Last Admin: 08/24/17 22:39 Dose: 100 mls/hr Loperamide HCl (Imodium 2 Mg) 2 mg PO Q12H PRN PRN PRN Reason: DIARRHEA Stop: 09/23/17 08:50 Miscellaneous Information (Medication Intervention) 0 each MC .RN TO CLARIFY [facility] Stop: 09/23/17 09:29 Ondansetron HCl (Zofran 4 Mg/2 Ml Vial) 4 mg IV Q6H PRN PRN PRN Reason: NAUSEA/VOMITING Stop: 09/22/17 22:18 Oxycodone HCl (Oxycontin 10 Mg Er) 10 mg PO Q4H PRN PRN PRN Reason: PAIN Stop: 08/29/17 08:49 Last Admin: 08/25/17 05:29 Dose: 10 mg Pantoprazole Sodium (Protonix 40mg Tablet) 40 mg PO DAILY@1200 CRUZITO Stop: 09/23/17 11:59 Last Admin: 08/24/17 13:29 Dose: Not Given Prochlorperazine (Compazine 5 Mg) 10 mg PO Q6H PRN PRN PRN Reason: NAUSEA Stop: 09/23/17 08:53 Intake & Output 08/24/17 08/25/17 11:59 11:59 Intake Total 959 4082 Output Total 100 3030 Balance 859 1052 Weight 61.8 kg Orders 08/24/17 08:50 Oxycodone HCl Cr 10 mg [Oxycontin 10 MG ER] 10 mg PO Q4H PRN PRN 06/20/18 08:51 Loperamide HCl 2 mg [Imodium 2 mg] 2 mg PO Q12H PRN PRN 08/24/17 08:52 Hydroxyzine HCl 25 mg [Atarax 25 mg] 12.5 mg PO DAILY PRN PRN 08/24/17 08:54 Prochlorperazine Maleate 5 mg* [Compazine 5 MG] 10 mg PO Q6H PRN PRN 08/24/17 09:30 Medication Intervention 0 each MC .RN TO CLARIFY 08/24/17 12:00 Lipase/Protease/Amylase [Pancrelipase Dr 5,000 Unit Cap] 7 cap PO TIDWMEALS PANTOPRAZOLE 40 mg Tablet [Protonix 40MG Tablet] 40 mg PO DAILY@1200 08/24/17 Lunch Regular Diet Lab Tests 08/24/17 04:48 Segmented Neutrophils 71 H Band Neutrophils 7 H Lymphocytes (Manual) 14 L Monocytes (Manual) 8 Platelet Estimate NORMAL RBC Morphology NORMAL Microbiology 08/23/17 19:02 Throat Throat Culture - Preliminary NO BETA GROWTH TO DATE 08/23/17 19:30 Blood Blood Culture - Preliminary NO GROWTH TO DATE 08/23/17 19:15 Blood Blood Culture - Preliminary NO GROWTH TO DATE Code(s): K83.0 - CHOLANGITIS (2) Fever Current Visit: Yes Status: Acute Onset Date: ~08/24/17 Qualifiers: Fever type: unspecified Qualified Code(s): R50.9 - Fever, unspecified Code(s): R50.9 - FEVER, UNSPECIFIED (3) Abdominal pain Current Visit: Yes Status: Acute Qualifiers: Abdominal location: generalized Qualified Code(s): R10.84 - Generalized abdominal pain Code(s): R10.9 - UNSPECIFIED ABDOMINAL PAIN (4) Pancreatic cancer Current Visit: Yes Status: Chronic Qualifiers: Pancreatic malignancy location: unspecified
[2017-08-25 08:58] LABS: Hematocrit 42.2 % (42-50); Mean Cell Volume 87.9 fl (78-100); Mean Corpuscular Hemoglobin 29.2 pg (26-32); Mean Corpuscular Hgb Concent. 33.2 g/dl (32-36); Mean Platelet Volume 10.7 fl (6-9.5); Platelet Count 197 K/mm3 (150-450); Red Cell Distribution Width 13.9 % (11.5-14.0); White Blood Count 5.2 K/mm3 (4.0-10.5)
[2017-08-25] MEDS: Zofran 4 MG/2 ML VIAL IV PRN ×2 (09:33→21:36)
[2017-08-25 10:04] LABS: ANION GAP 11.8 MEQ/L (5-15); BLOOD UREA NITROGEN 6 mg/dL (9-20); CHLORIDE 104 mmol/L (98-107); Calcium 8.5 mg/dL (8.4-10.2); Carbon Dioxide 26 mmol/L (22-30); Creatinine 1 0.76 mg/dL (0.66-1.25); Glucose 325 mg/dL (74-106); Potassium 4.2 mmol/L (3.5-5.1); SODIUM 137 mmol/L (137-145)
[2017-08-25] MEDS: Sodium Chloride 0.9% 1000 ML 1,000 ML IV SCH (11:57)
[2017-08-25] MEDS: Protonix 40MG Tablet PO SCH (11:59)
--- NOTE | 2017-08-25 13:06 | PCM.NOTE ---
Date and Time: 08/25/17 1303 Subjective Assessment: c/o abdominal pain - Review of Systems Constitutional: No Fever, No Chills Eyes: No Symptoms Ears, Nose, & Throat: No Symptoms Respiratory: No Cough, No Short Of Breath Cardiac: No Chest Pain, No Edema, No Syncope Abdominal/Gastrointestinal: No Abdominal Pain, No Nausea, No Vomiting, No Diarrhea Genitourinary Symptoms: No Dysuria Musculoskeletal: No Back Pain, No Neck Pain Skin: No Rash Neurological: No Dizziness, No Focal Weakness, No Sensory Changes Psychological: No Symptoms Endocrine: No Symptoms Hematologic/Lymphatic: No Symptoms Immunological/Allergic: No Symptoms Objective Exam General Appearance: no apparent distress, alert Neurologic Exam: alert, oriented x 3, cooperative, normal mood/affect, nml cerebellar function, sensation nml, No motor deficits Skin Exam: normal color, warm, dry Eye Exam: PERRL, EOMI, eyes nml inspection Ears, Nose, Throat Exam: normal ENT inspection, pharynx normal, moist mucous membranes Neck Exam: normal inspection, non-tender, supple, full range of motion Respiratory Exam: normal breath sounds, lungs clear, No respiratory distress Cardiovascular Exam: regular rate/rhythm, normal heart sounds Gastrointestinal/Abdomen Exam: soft, No tenderness, No mass Extremity Exam: normal inspection, normal range of motion Back Exam: normal inspection, normal range of motion, No CVA tenderness, No vertebral tenderness Male Genitalia Exam: deferred Rectal Exam: deferred OBJECTIVE DATA Vital Signs: Vital Signs - 24 hr Temp Pulse Resp BP Pulse Ox 08/25/17 11:37 98.2 F 75 18 150/68 98 08/25/17 07:26 98.3 F 80 18 168/75 97 08/25/17 03:56 98.0 F 75 15 161/72 97 08/25/17 00:00 98.2 F 73 18 144/69 97 08/24/17 20:00 98.2 F 74 17 137/64 97 08/24/17 15:53 99.0 F 77 18 141/67 96 Pain Assessment - Last Documented Pain Intensity 2 Pain Scale Used 0-10 Pain Scale Intake and Output: Intake & Output 08/23/17 08/24/17 08/25/17 08/26/17 11:59 11:59 11:59 11:59 Intake Total 959 4202 Output Total 100 3580 Balance 859 622 Weight 61.8 kg Lab Results: Lab Results-Last 24 Hours 08/25/17 08/25/17 Range/Units 08:43 08:43 WBC 5.2 (4.0-10.5) K/mm3 RBC 4.80 (4.1-5.6) M/mm3 Hgb 14.0 (12.5-18.0) gm/dl Hct 42.2 (42-50) % MCV 87.9 (78-100) fl MCH 29.2 (26-32) pg MCHC 33.2 (32-36) g/dl RDW 13.9 (11.5-14.0) % Plt Count 197 (150-450) K/mm3 MPV 10.7 H (6-9.5) fl Sodium 137 (137-145) mmol/L Potassium 4.2 (3.5-5.1) mmol/L Chloride 104 (98-107) mmol/L Carbon Dioxide 26 (22-30) mmol/L Anion Gap 11.8 (5-15) MEQ/L BUN 6 L (9-20) mg/dL Creatinine 0.76 (0.66-1.25) mg/dL Estimated GFR > 60.0 ML/MIN Glucose 325 H (74-106) mg/dL Calcium 8.5 (8.4-10.2) mg/dL Radiology Exams: Radiology Procedures Category Date Time Status ABDOMEN AND PELVIS W CONTRAST [CT] Stat Exams 08/23/17 20:47 Completed CHEST 2 VIEWS (PA AND LAT) Stat Exams 08/23/17 19:03 Completed Multi-Disciplinary Progress Notes: Multi-Disciplinary Progress Notes 08/25/17 11:12 Case Management Note by Josee Cole NOTIFIED DR. LOPEZ PT IS FEELING LIGHTHEADED, DIZZY, AND NAUSEATED. MELANIE DAVIDSON HAS TREATED THE NAUSEA. WILL CONTINUE TO MONITOR AND CANCEL DISCHARGE. Initialized on 08/25/17 11:12 - END OF NOTE Assessment/Plan (1) Cholangitis Current Visit: Yes Status: Acute Onset Date: ~08/24/17 Assessment & Plan: still c/o abdominal pain Code(s): K83.0 - CHOLANGITIS (2) Fever Current Visit: Yes Status: Acute Onset Date: ~08/24/17 Qualifiers: Fever type: unspecified Qualified Code(s): R50.9 - Fever, unspecified Code(s): R50.9 - FEVER, UNSPECIFIED (3) Abdominal pain Current Visit: Yes Status: Acute Qualifiers: Abdominal location: generalized Qualified Code(s): R10.84 - Generalized abdominal pain Code(s): R10.9 - UNSPECIFIED ABDOMINAL PAIN (4) Pancreatic cancer Current Visit: Yes Status: Chronic Qualifiers: Pancreatic malignancy location: unspecified
[2017-08-25] MEDS: PATIENT OWN MEDICATION PO SCH (16:22)
[2017-08-26] MEDS: Zosyn 3.375GM/100 Ml D5W 3.375 GM/100 ML IVPB IV SCH ×4 (00:06→17:06)
[2017-08-26] MEDS: Oxycontin 10 MG ER PO PRN ×5 (02:19→20:32)
[2017-08-26] MEDS: PATIENT OWN MEDICATION PO SCH ×3 (06:32→16:22)
[2017-08-26] MEDS: Sodium Chloride 0.9% 1000 ML 1,000 ML IV SCH ×2 (06:33→16:34)
[2017-08-26] MEDS: Pepcid 20 MG VIAL IV SCH ×2 (07:58→21:10)
[2017-08-26 10:35] LABS: Hematocrit 38.7 % (42-50); Mean Cell Volume 86.8 fl (78-100); Mean Corpuscular Hemoglobin 29.1 pg (26-32); Mean Corpuscular Hgb Concent. 33.6 g/dl (32-36); Mean Platelet Volume 10.5 fl (6-9.5); Platelet Count 195 K/mm3 (150-450); Red Blood Count 4.46 M/mm3 (4.1-5.6); Red Cell Distribution Width 13.5 % (11.5-14.0); White Blood Count 5.7 K/mm3 (4.0-10.5)
--- NOTE | 2017-08-26 10:47 | PCM.NOTE ---
Date and Time: 08/26/17 1046 Subjective Assessment: doing ok - Review of Systems Constitutional: No Fever, No Chills Eyes: No Symptoms Ears, Nose, & Throat: No Symptoms Respiratory: No Cough, No Short Of Breath Cardiac: No Chest Pain, No Edema, No Syncope Abdominal/Gastrointestinal: No Abdominal Pain, No Nausea, No Vomiting, No Diarrhea Genitourinary Symptoms: No Dysuria Musculoskeletal: No Back Pain, No Neck Pain Skin: No Rash Neurological: No Dizziness, No Focal Weakness, No Sensory Changes Psychological: No Symptoms Endocrine: No Symptoms Hematologic/Lymphatic: No Symptoms Immunological/Allergic: No Symptoms Objective Exam General Appearance: no apparent distress, alert Neurologic Exam: alert, oriented x 3, cooperative, normal mood/affect, nml cerebellar function, sensation nml, No motor deficits Skin Exam: normal color, warm, dry Eye Exam: PERRL, EOMI, eyes nml inspection Ears, Nose, Throat Exam: normal ENT inspection, pharynx normal, moist mucous membranes Neck Exam: normal inspection, non-tender, supple, full range of motion Respiratory Exam: normal breath sounds, lungs clear, No respiratory distress Cardiovascular Exam: regular rate/rhythm, normal heart sounds Gastrointestinal/Abdomen Exam: soft, No tenderness, No mass Extremity Exam: normal inspection, normal range of motion Back Exam: normal inspection, normal range of motion, No CVA tenderness, No vertebral tenderness Male Genitalia Exam: deferred Rectal Exam: deferred OBJECTIVE DATA Vital Signs: Vital Signs - 24 hr Temp Pulse Resp BP Pulse Ox 08/26/17 07:12 98.3 F 68 18 160/72 97 08/26/17 04:00 98.6 F 72 18 167/74 94 L 08/26/17 00:00 98.6 F 69 16 177/78 98 08/25/17 20:00 98.6 F 76 17 163/75 97 08/25/17 16:00 98.3 F 67 18 147/67 99 08/25/17 11:37 98.2 F 75 18 150/68 98 Pain Assessment - Last Documented Pain Intensity 7 Pain Scale Used 0-10 Pain Scale Intake and Output: Intake & Output 08/23/17 08/24/17 08/25/17 08/26/17 11:59 11:59 11:59 11:59 Intake Total 959 4202 3666 Output Total 100 3580 2050 Balance 426 118 3780 Weight 61.8 kg 61.8 kg Lab Results: Lab Results-Last 24 Hours 08/26/17 Range/Units 10:23 WBC 5.7 (4.0-10.5) K/mm3 RBC 4.46 (4.1-5.6) M/mm3 Hgb 13.0 (12.5-18.0) gm/dl Hct 38.7 L (42-50) % MCV 86.8 (78-100) fl MCH 29.1 (26-32) pg MCHC 33.6 (32-36) g/dl RDW 13.5 (11.5-14.0) % Plt Count 195 (150-450) K/mm3 MPV 10.5 H (6-9.5) fl Multi-Disciplinary Progress Notes: Multi-Disciplinary Progress Notes 08/25/17 11:12 Case Management Note by Josee Cole NOTIFIED DR. LOPEZ PT IS FEELING LIGHTHEADED, DIZZY, AND NAUSEATED. MELANIE DAVIDSON HAS TREATED THE NAUSEA. WILL CONTINUE TO MONITOR AND CANCEL DISCHARGE. Initialized on 08/25/17 11:12 - END OF NOTE Assessment/Plan (1) Cholangitis Current Visit: Yes Status: Resolved Onset Date: ~08/24/17 Code(s): K83.0 - CHOLANGITIS (2) Fever Current Visit: Yes Status: Acute Onset Date: ~08/24/17 Qualifiers: Fever type: unspecified Qualified Code(s): R50.9 - Fever, unspecified Code(s): R50.9 - FEVER, UNSPECIFIED (3) Abdominal pain Current Visit: Yes Status: Resolved Qualifiers: Abdominal location: generalized Qualified Code(s): R10.84 - Generalized abdominal pain Code(s): R10.9 - UNSPECIFIED ABDOMINAL PAIN (4) Pancreatic cancer Current Visit: Yes Status: Chronic Qualifiers: Pancreatic malignancy location: unspecified
[2017-08-26] MEDS: Protonix 40MG Tablet PO SCH (11:20)
[2017-08-26 11:38] LABS: ALBUMIN 3.4 g/dL (3.5-5.0); ALKALINE PHOSPHATASE 87 U/L (38-126); ANION GAP 12.8 MEQ/L (5-15); BLOOD UREA NITROGEN 7 mg/dL (9-20); CHLORIDE 102 mmol/L (98-107); Calcium 8.1 mg/dL (8.4-10.2); Carbon Dioxide 24 mmol/L (22-30); Creatinine 1 0.73 mg/dL (0.66-1.25); Glucose 323 mg/dL (74-106); Potassium 3.8 mmol/L (3.5-5.1); SGOT/AST 14 U/L (17-59); SGPT/ALT 21 U/L (0-50); SODIUM 136 mmol/L (137-145); Total Protein 6.5 g/dL (6.3-8.2)
[2017-08-26] MEDS: Zofran 4 MG/2 ML VIAL IV PRN (12:12)
[2017-08-26] MEDS ORDERED: VANCOMYCIN HCL PO SCH (13:00)
[2017-08-26] MEDS: ZOLOFT 50 MG TABLET PO SCH (13:36)
[2017-08-26] MEDS: TYLENOL 325 MG PO PRN (19:58)
[2017-08-27] MEDS: Zosyn 3.375GM/100 Ml D5W 3.375 GM/100 ML IVPB IV SCH ×3 (00:41→12:00)
[2017-08-27] MEDS: Oxycontin 10 MG ER PO PRN ×3 (00:42→10:32)
[2017-08-27] MEDS: TYLENOL 325 MG PO PRN (00:47)
[2017-08-27] MEDS: Sodium Chloride 0.9% 1000 ML 1,000 ML IV SCH (04:08)
[2017-08-27] MEDS: Zofran 4 MG/2 ML VIAL IV PRN ×2 (04:55→12:01)
[2017-08-27 07:19] VITALS: PULSE 76
[2017-08-27] MEDS: PATIENT OWN MEDICATION PO SCH ×2 (08:27→12:00)
--- NOTE | 2017-08-27 09:04 | PCM.NOTE ---
Date and Time: 08/27/17902 Subjective Assessment: doing better - Review of Systems Constitutional: No Fever, No Chills Eyes: No Symptoms Ears, Nose, & Throat: No Symptoms Respiratory: No Cough, No Short Of Breath Cardiac: No Chest Pain, No Edema, No Syncope Abdominal/Gastrointestinal: No Abdominal Pain, No Nausea, No Vomiting, No Diarrhea Genitourinary Symptoms: No Dysuria Musculoskeletal: No Back Pain, No Neck Pain Skin: No Rash Neurological: No Dizziness, No Focal Weakness, No Sensory Changes Psychological: No Symptoms Endocrine: No Symptoms Hematologic/Lymphatic: No Symptoms Immunological/Allergic: No Symptoms Objective Exam General Appearance: no apparent distress, alert Neurologic Exam: alert, oriented x 3, cooperative, normal mood/affect, nml cerebellar function, sensation nml, No motor deficits Skin Exam: normal color, warm, dry Eye Exam: PERRL, EOMI, eyes nml inspection Ears, Nose, Throat Exam: normal ENT inspection, pharynx normal, moist mucous membranes Neck Exam: normal inspection, non-tender, supple, full range of motion Respiratory Exam: normal breath sounds, lungs clear, No respiratory distress Cardiovascular Exam: regular rate/rhythm, normal heart sounds Gastrointestinal/Abdomen Exam: soft, No tenderness, No mass Extremity Exam: normal inspection, normal range of motion Back Exam: normal inspection, normal range of motion, No CVA tenderness, No vertebral tenderness Male Genitalia Exam: deferred Rectal Exam: deferred OBJECTIVE DATA Vital Signs: Vital Signs - 24 hr Temp Pulse Resp BP Pulse Ox 08/27/17 07:19 98.4 F 76 17 135/63 97 08/27/17 04:00 98.1 F 82 18 188/88 96 08/26/17 23:27 98.2 F 74 16 185/84 98 08/26/17 19:57 98.2 F 79 18 184/84 98 08/26/17 15:51 97.9 F 69 18 186/83 98 08/26/17 11:24 98.5 F 71 18 170/74 97 Pain Assessment - Last Documented Pain Intensity 5 Pain Scale Used 0-10 Pain Scale Intake and Output: Intake & Output 08/24/17 08/25/17 08/26/17 08/27/17 11:59 11:59 11:59 11:59 Intake Total 959 4202 3206 5052 Output Total 100 0290 2850 2075 Balance 859 481 626 2716 Weight 61.8 kg 61.8 kg Lab Results: Lab Results-Last 24 Hours 08/26/17 08/26/17 Range/Units 10:23 10:23 WBC 5.7 (4.0-10.5) K/mm3 RBC 4.46 (4.1-5.6) M/mm3 Hgb 13.0 (12.5-18.0) gm/dl Hct 38.7 L (42-50) % MCV 86.8 (78-100) fl MCH 29.1 (26-32) pg MCHC 33.6 (32-36) g/dl RDW 13.5 (11.5-14.0) % Plt Count 195 (150-450) K/mm3 MPV 10.5 H (6-9.5) fl Sodium 136 L (137-145) mmol/L Potassium 3.8 (3.5-5.1) mmol/L Chloride 102 (98-107) mmol/L Carbon Dioxide 24 (22-30) mmol/L Anion Gap 12.8 (5-15) MEQ/L BUN 7 L (9-20) mg/dL Creatinine 0.73 (0.66-1.25) mg/dL Estimated GFR > 60.0 ML/MIN Glucose 323 H (74-106) mg/dL Calcium 8.1 L (8.4-10.2) mg/dL Total Bilirubin 0.30 (0.2-1.3) mg/dL AST 14 L (17-59) U/L ALT 21 (0-50) U/L Alkaline Phosphatase 87 (38-126) U/L Serum Total Protein 6.5 (6.3-8.2) g/dL Albumin 3.4 L (3.5-5.0) g/dL Multi-Disciplinary Progress Notes: Multi-Disciplinary Progress Notes 08/26/17 12:15 (created 08/26/17 12:36) Case Management Note by Josee Cole DR. ROUNDED AND EVALUATED, DISCUSSED PLAN OF CARE AND TREATMENT WITH PT. PT REPORTS THAT HE IS STILL NAUSEATED, FEELS ONLY SLIGHT BETTER. VERBALIZED UNDERSTANDING TO ALL INFORMATION. ALL QUESTIONS ANSWERED. DR. LOPEZ REPORTS THAT PT WILL STAY ONE MORE DAY FOR IV ABX, WILL ALSO ADD ZOLOFT TODAY FOR SITUATIONAL DEPRESSION. DENIES ADDNL NEEDS AT THIS TIME. PLANS TO RETURN HOME TO PRE EPISODIC LEVEL OF [place], INDEPENDENT WITH ALL ADL'S. HAVE FRIENDS THAT HELP OUT WHEN NEEDED. Initialized on 08/26/17 12:36 - END OF NOTE Assessment/Plan (1) Cholangitis Current Visit: Yes Status: Resolved Onset Date: ~08/24/17 Code(s): K83.0 - CHOLANGITIS (2) Fever Current Visit: Yes Status: Resolved Onset Date: ~08/24/17 Qualifiers: Fever type: unspecified Qualified Code(s): R50.9 - Fever, unspecified Code(s): R50.9 - FEVER, UNSPECIFIED (3) Abdominal pain Current Visit: Yes Status: Resolved Qualifiers: Abdominal location: generalized Qualified Code(s): R10.84 - Generalized abdominal pain Code(s): R10.9 - UNSPECIFIED ABDOMINAL PAIN (4) Pancreatic cancer Current Visit: Yes Status: Chronic Qualifiers: Pancreatic malignancy location: unspecified
--- NOTE | 2017-08-27 09:08 | PCM.DS ---
Discharge Summary Date of Admission: 08/23/17 22:48 Admitting Physician: MAGGIE LOPEZ Primary Care Provider: [facility] Allergies Allergies No Known Drug Allergies Allergy (Verified 08/23/17 19:09) Hospital Summary - Hospital Course Hospital Course: Chief Complaint Diagnosis Fever for 3 days Allergies Allergy/AdvReac Type Severity Reaction Status Date / Time No Known Drug Allergies Allergy Verified 08/23/17 19:09 Vital Signs (Last 24 hours) Temp Pulse Resp BP Pulse Ox 08/27/17 07:19 98.4 F 76 17 135/63 97 08/27/17 04:00 98.1 F 82 18 188/88 96 08/26/17 23:27 98.2 F 74 16 185/84 98 08/26/17 19:57 98.2 F 79 18 184/84 98 08/26/17 15:51 97.9 F 69 18 186/83 98 08/26/17 11:24 98.5 F 71 18 170/74 97 Home Medications Medication Instructions Recorded Confirmed Last Taken Type Hydroxyzine HCl 10 mg PO DAILY PRN PRN 08/23/17 08/24/17 Unknown History Lipase/Protease/Amylase [Gomez Lockwood 1 each PO TIDWMEALS 08/23/17 08/24/17 History 36,000 Units Capsule] Vancomycin HCl [Vancomycin 25Mg/ml 125 mg PO CLARIFY MDD every other 08/23/1708/23/17 History Oral Solution Compound Kit] day Current Medications Generic Name Dose Route Start Last Admin Trade Name Freq PRN Reason Stop Dose Admin Acetaminophen 650 mg 08/23/17 22:19 08/27/17 00:47 Tylenol 325 Mg PO 09/22/17 22:18 650 mg Q4H PRN PRN Administration PAIN AND/OR FEVER Famotidine 20 mg 08/24/17 10:00 08/26/17 21:10 Pepcid 20 Mg Vial IV 09/23/17 09:59 20 mg Q12HT CRUZITO Administration Hydroxyzine HCl 12.5 mg 08/24/17 08:52 Atarax 25 Mg PO 09/23/17 08:51 DAILY PRN PRN ANXIETY Piperacillin Sod/Tazobactam Sod 3.375 gm in 100 mls @ 200 mls/hr 08/24/17 00: 00 08/27/17 05:23 Zosyn 3.375gm/100 Ml D5w IV 09/23/17 00:00 200 mls/hr Q6HT CRUZITO Administration Sodium Chloride 1,000 mls @ 100 mls/hr 08/23/17 22:30 08/27/17 04:08 Sodium Chloride 0.9% 1000 Ml IV 09/22/17 22:29 100 mls/hr .Q10H CRUZITO Administration Loperamide HCl 2 mg 08/24/17 08:51 Imodium 2 Mg PO 09/23/17 08:50 Q12H PRN PRN DIARRHEA Miscellaneous Information 0 each 08/24/17 09:30 Medication Intervention 09/23/17 09:29 .RN TO CLARIFY CRUZITO Ondansetron HCl 4 mg 08/23/17 22:19 08/27/17 04:55 Zofran 4 Mg/2 Ml Vial IV 09/22/17 22:18 4 mg Q6H PRN PRN Administration NAUSEA/VOMITING Oxycodone HCl 10 mg 08/24/17 08:50 08/27/17 05:23 Oxycontin 10 Mg Er PO 08/29/17 08:49 10 mg Q4H PRN PRN Administration PAIN Pantoprazole Sodium 40 mg 08/24/17 12:00 08/26/17 11:20 Protonix 40mg Tablet PO 09/23/17 11:59 40 mg DAILY@1200 CRUZITO Administration Patient Own Med ( 0 each 08/25/17 16:30 08/27/17 08:27 Creon) PO 09/24/17 16:29 Not Given AC CRUZITO Prochlorperazine 10 mg 08/24/17 08:54 Compazine 5 Mg PO 09/23/17 08:53 Q6H PRN PRN NAUSEA Sertraline HCl 50 mg 08/26/17 14:00 08/26/17 13:36 Zoloft 50 Mg Tablet PO 09/25/17 13:59 50 mg DAILY CRUZITO Administration Vancomycin HCl 125 mg 08/26/17 13:00 08/26/17 13:39 Vancomycin Hcl PO 09/25/17 12:59 125 mg QOD CRUZITO Administration Discontinued Medications Generic Name Dose Route Start Last Admin Trade Name Freq PRN Reason Stop Dose Admin Acetaminophen 1,000 mg 08/23/17 19:20 08/23/17 19:53 Tylenol Extra Strength 500 Mg PO 08/23/17 19:21 1,000 mg NOW ONE Administration Acetaminophen Confirm 08/23/17 19:43 Tylenol Extra Strength 500 Mg Administered 08/23/17 19:44 Dose 1,000 mg .ROUTE .STK-MED ONE Lipase/Protease/Amylase 7 cap 08/24/17 12:00 08/25/17 11:[address] 5,000 Unit Cap PO 09/23/17 11:59 7 cap TIDWMEALS CRUZITO Administration Sodium Chloride 1,000 mls @ 999 mls/hr 08/23/17 19:02 08/23/17 21:00 Sodium Chloride 0.9% 1000 Ml IV 08/23/17 20:02 Infused .Q1H1M STA Infusion Sodium Chloride Confirm 08/23/17 19:43 Sodium Chloride 0.9% 1000 Ml Administered 08/23/17 19:44 Dose 1,000 mls @ ud .ROUTE .STK-MED ONE Piperacillin Sod/Tazobactam Sod 3.375 gm in 100 mls @ 200 mls/hr 08/23/17 21: 57 08/23/17 22:14 Zosyn 3.375gm/100 Ml D5w IV 08/23/17 22:26 200 mls/hr STAT STA 200 mls/hr Administration Piperacillin Sod/Tazobactam Sod Confirm 08/23/17 21:59 Zosyn 3.375gm/100 Ml D5w Administered 08/23/17 22:00 Dose 3.375 gm in 100 mls @ ud IV .STK-MED ONE Ondansetron HCl 4 mg 08/23/17 19:02 08/23/17 19:53 Zofran 4 Mg/2 Ml Vial IV 08/23/17 19:03 4 mg STAT STA Administration Ondansetron HCl Confirm 08/23/17 19:43 Zofran 4 Mg/2 Ml Vial Administered 08/23/17 19:44 Dose 4 mg .ROUTE .STK-MED ONE Oxycodone HCl 10 mg 08/24/17 22:13 08/23/17 22:40 Oxycontin 10 Mg Er PO 06/20/18 22:14 10 mg NOW ONE Administration Oxycodone HCl 10 mg 08/24/17 10:00 08/24/17 06:02 Oxycontin 10 Mg Er PO 08/29/17 09:59 10 mg TID CRUZITO Administration Oxycodone/Acetaminophen Confirm 08/23/17 22:17 Oxycodone-Acetaminophen 10-325 Administered 08/23/17 22:18 Dose 1 tab .ROUTE .STK-MED ONE Intake & Output (Last 24 hours) 08/24/17 08/25/17 08/26/17 08/27/17 11:59 11:59 11:59 11:59 Intake Total 959 4202 3666 5052 Output Total 100 3580 2850 2075 Balance 859 596 319 8091 Weight 61.8 kg 61.8 kg Microbiology Results (Last 24 hours) 08/23/17 19:02 Throat Throat Culture - Final NO GROUP A BETA STREP/NO PREDOMINANT PATHOGENS PRESENT Laboratory Results (Last 24 hours) 08/26/17 08/26/17 10:23 10:23 WBC 5.7 RBC 4.46 Hgb 13.0 Hct 38.7 L MCV 86.8 MCH 29.1 MCHC 33.6 RDW 13.5 Plt Count 195 MPV 10.5 H Sodium 136 L Potassium 3.8 Chloride 102 Carbon Dioxide 24 Anion Gap 12.8 BUN 7 L Creatinine 0.73 Estimated GFR > 60.0 Glucose 323 H Calcium 8.1 L Total Bilirubin 0.30 AST 14 L ALT 21 Alkaline Phosphatase 87 Serum Total Protein 6.5 Albumin 3.4 L Orders (Last 24 hours) Category Date Time Status CBC Urgent Lab 08/26/17 10:23 Completed CMP Urgent Lab 08/26/17 10:23 Completed Sertraline HCl 50 mg [Zoloft 50 mg Tablet] Med 08/26/17 14:00 Active 50 mg PO DAILY Vancomycin HCl Med 08/26/17 13:00 Active 125 mg PO QOD Patient Care Notes (Last 24 hours) 08/26/17 12:15 (created 08/26/17 12:36) Case Management Note by Josee Cole DR. ROUNDED AND EVALUATED, DISCUSSED PLAN OF CARE AND TREATMENT WITH PT. PT REPORTS THAT HE IS STILL NAUSEATED, FEELS ONLY SLIGHT BETTER. VERBALIZED UNDERSTANDING TO ALL INFORMATION. ALL QUESTIONS ANSWERED. DR. LOPEZ REPORTS THAT PT WILL STAY ONE MORE DAY FOR IV ABX, WILL ALSO ADD ZOLOFT TODAY FOR SITUATIONAL DEPRESSION. DENIES ADDNL NEEDS AT THIS TIME. PLANS TO RETURN HOME TO PRE EPISODIC LEVEL OF [place], INDEPENDENT WITH ALL ADL'S. HAVE FRIENDS THAT HELP OUT WHEN NEEDED. Initialized on 08/26/17 12:36 - END OF NOTE - Vitals & Intake/Output Vital Signs: Vital Signs Temperature 98.4 F 08/27/17 07:19 Pulse Rate 76 08/27/17 07:19 Respiratory Rate 17 08/27/17 07:19 Blood Pressure 135/63 08/27/17 07:19 O2 Sat by Pulse Oximetry 97 08/27/17 07:19 Intake & Output: Intake & Output 08/24/17 08/25/17 08/26/17 08/27/17 11:59 11:59 11:59 11:59 Intake Total 959 4202 3666 5052 Output Total 100 3580 2850 2075 Balance 859 459 457 9799 Weight 61.8 kg 61.8 kg - Lab Result Diagrams: 08/26/17 10:23 08/26/17 10:23 Lab Results-Last 24 Hrs: Lab Results-Last 24 Hours 08/26/17 08/26/17 Range/Units 10:23 10:23 WBC 5.7 (4.0-10.5) K/mm3 RBC 4.46 (4.1-5.6) M/mm3 Hgb 13.0 (12.5-18.0) gm/dl Hct 38.7 L (42-50) % MCV 86.8 (78-100) fl MCH 29.1 (26-32) pg MCHC 33.6 (32-36) g/dl RDW 13.5 (11.5-14.0) % Plt Count 195 (150-450) K/mm3 MPV 10.5 H (6-9.5) fl Sodium 136 L (137-145) mmol/L Potassium 3.8 (3.5-5.1) mmol/L Chloride 102 (98-107) mmol/L Carbon Dioxide 24 (22-30) mmol/L Anion Gap 12.8 (5-15) MEQ/L BUN 7 L (9-20) mg/dL Creatinine 0.73 (0.66-1.25) mg/dL Estimated GFR > 60.0 ML/MIN Glucose 323 H (74-106) mg/dL Calcium 8.1 L (8.4-10.2) mg/dL Total Bilirubin 0.30 (0.2-1.3) mg/dL AST 14 L (17-59) U/L ALT 21 (0-50) U/L Alkaline Phosphatase 87 (38-126) U/L Serum Total Protein 6.5 (6.3-8.2) g/dL Albumin 3.4 L (3.5-5.0) g/dL Micro Results-Entire Visit: Microbiology 08/23/17 19:02 Throat Culture - Final Throat NO GROUP A BETA STREP/NO PREDOMINANT PATHOGENS PRESENT 08/23/17 19:30 Blood Culture - Preliminary Blood NO GROWTH TO DATE 08/23/17 19:15 Blood Culture - Preliminary Blood NO GROWTH TO DATE Discharge Exam General Appearance: no apparent distress, alert Neurologic Exam: alert, oriented x 3, cooperative, normal mood/affect, nml cerebellar function, sensation nml, No motor deficits Skin Exam: normal color, warm, dry Eye Exam: PERRL, EOMI, eyes nml inspection Ears, Nose, Throat Exam: normal ENT inspection, pharynx normal, moist mucous membranes Neck Exam: normal inspection, non-tender, supple, full range of motion Respiratory Exam: normal breath sounds, lungs clear, No respiratory distress Cardiovascular Exam: regular rate/rhythm, normal heart sounds Gastrointestinal/Abdomen Exam: soft, No tenderness, No mass Extremity Exam: normal inspection, normal range of motion Back Exam: normal inspection, normal range of motion, No CVA tenderness, No vertebral tenderness Male Genitalia Exam: deferred Rectal Exam: deferred Final Diagnosis/Problem List - Final Discharge Diagnosis/Problem (1) Cholangitis Current Visit: Yes Status: Resolved Onset Date: ~08/24/17 (2) Fever Current Visit: Yes Status: Resolved Onset Date: ~08/24/17 (3) Abdominal pain Current Visit: Yes Status: Resolved (4) Pancreatic cancer Current Visit: Yes Status: Chronic - Discharge Discharge Date: 08/27/17 Disposition: Home, Self-Care Condition: Stable Prescriptions: New Cephalexin Monohydrate [Cephalexin] 500 mg PO QID #30 capsule Sertraline HCl 50 mg [Zoloft 50 mg Tablet] 50 mg PO DAILY 30 Days #30 tab Continue Prochlorperazine Maleate 10 mg PO Q6HPRN PRN PRN Reason: Nausea Lansoprazole 30 mg PO LUNCH Loperamide HCl 2 mg [Imodium 2 mg] 2 mg PO Q12H PRN PRN PRN Reason: Diarrhea Oxycodone HCl 10 mg PO Q4H PRN PRN Reason: Pain Lipase/Protease/Amylase [Gomez Lockwood 36,000 Units Capsule] 1 each PO TIDWMEALS Vancomycin HCl [Vancomycin 25Mg/ml Oral Solution Compound Kit] 125 mg PO CLARIFY MDD every other day Hydroxyzine HCl 10 mg PO DAILY PRN PRN PRN Reason: Anxiety Instructions: Whipple Procedure, Nausea and Vomiting, Adult (DC), Gallstones ( DC) Additional Instructions: [facility]
[2017-08-27] MEDS: ZOLOFT 50 MG TABLET PO SCH (10:19)
[2017-08-27] MEDS: Pepcid 20 MG VIAL IV SCH (10:19)
[2017-08-27 11:24] VITALS: BP 170/79; O2SAT 95
[2017-08-27] MEDS: Protonix 40MG Tablet PO SCH (13:02)
== END 2017-08-27 15:50 | disposition home or self-care (01) | DRG 445 ==
LOC: ED 18:28 → MED SURG 22:48
PROVIDERS: ADMIT General Practice; ATTEND General Practice
DX: K83.0 Cholangitis (principal); C25.9 Malignant neoplasm of pancreas, unspecified; R50.9 Fever, unspecified; R10.9 Unspecified abdominal pain; J45.909 Unspecified asthma, uncomplicated; M54.2 Cervicalgia; Z85.038 Personal history of other malignant neoplasm of large intestine; Z85.72 Personal history of non-Hodgkin lymphomas
CPT/HCPCS: 36000; 36415; 71046; 74177; 80048; 80053; 81000; 82272; 83605; 83690; 85025; 85027; 86308; 87040; 87045; 87046; 87070; 87335; 87430; 87493; 87631; 93005; 93041; 96360; 96374; 96375; 99285; J2405; J2543; A9270-GY